=== PATIENT | female | born 1990 | race Caucasian/White ===

== ENCOUNTER 2017-06-28 02:18 | Emergency (ER) | payer OTHER ==
[~2017-06-28] VITALS: Ht 160 cm; Wt 64.8 kg
[~2017-06-28 02:18] MED LIST: ALUMSUS68 PO; LEVOIUD IU; ONDA4TAB46 PO; SIME80CH PO; [UNRECOGNIZED DRUG - REMARK] PO
[2017-06-28 02:26] VITALS: TEMP 36.3; Ht 160 cm; Wt 64.8 kg
[2017-06-28] MEDS ORDERED: METOCLOPRAMIDE HCL INJ 5 MG/ML 2 ML VIAL IV STA (02:46)
[2017-06-28] MEDS ORDERED: DiphenhydrAMINE HCL 50 MG/ML VIAL IV STA (02:46)
[2017-06-28] MEDS ORDERED: SODIUM CHLORIDE 0.9% 1000ML 1,000 ML IV STA (02:46)
[2017-06-28 03:45] LABS: BASO % 0.1 %; BASO ABS # 0.02 K/uL (0-0.2); COMPLETE YES; EOS % 0.4 %; HEMATOCRIT 42.5 % (37-47); IG% 0.2 %; LYMPH % 13.4 %; LYMPH ABS # 1.82 K/uL (1.2-3.4); MEAN CELL VOLUME 87.3 fL (80-100); MEAN CORPUSCULAR HEMOGLOBIN 31.8 pg (25-34); MEAN CORPUSCULAR HGB CONC 36.5 g/dl (32-36); MEAN PLATELET VOLUME 9.6 fL (7.4-10.4); NEUT % 77.9 %; PLATELET COUNT 158 K/uL (130-400); RED BLOOD COUNT 4.87 M/uL (4.2-5.4); WHITE BLOOD COUNT 13.61 K/uL (4.8-10.8)
[2017-06-28 04:07] LABS: BUN/CREATININE RATIO 28.9 (10-20); CALCIUM 8.7 mg/dl (8.5-10.1); CREATININE 0.61 mg/dl (0.60-1.20); POTASSIUM 3.3 mmol/L (3.5-5.1); PREG INTERNAL NEGATIVE QC NEG CLEAR BACKGROUND; PREG INTERNAL POSITIVE QC POS CONTROL LINE
[2017-06-28] MEDS ORDERED: POTASSIUM CHLORIDE 10 MEQ TABCR PO STA (04:23)
[2017-06-28 04:50] VITALS: BP 105/46; PULSE 85; O2SAT 98
--- NOTE | 2017-06-28 05:22 | EMERGENCY ROOM VISIT NOTE ---
History First contact with patient: 02:37 Chief Complaint: HEADACHE Stated Complaint: HEAD ACHE,NAUSEA History of Present Illness The patient is a 26 year old female who presents to the Emergency Room with complaints of headache for the past several hours of nausea and vomiting and photosensitivity. Patient has had headaches before. This feels slightly different. There is a family history of migraines. Headache 8 out of 10 throughout the head. Patient denies sudden onset headache, fevers, chills, neck stiffness, loss of vision, change in vision, balance problems, localized weakness, chest pain, dyspnea, abdominal pain or any other medical complaints. Review of Systems See HPI for pertinent positives & negatives. A total of 10 systems reviewed and were otherwise negative. Past Medical/Surgical History Medical Problems: (1) Bipol I, Rec Epis Or Current Mixed, Severe, Wo Psychotic Beh (2) Depressive Disorder Nec (3) Headache (4) Nausea & vomiting (5) Nausea & vomiting Family History Cancer Hypertension Social History Smoking Status: Current Every Day Smoker Alcohol Use: none Drug Use: none Marital Status: in relationship Housing Status: lives with family Occupation Status: employed Current/Historical Medications No Active Prescriptions or Reported Meds Physical Exam Vital Signs Date Time Temp Pulse Resp B/P (MAP) Pulse Ox O2 Delivery O2 Flow Rate FiO2 06/28/17 04:50 85 18 105/46 98 06/28/17 02:26 36.3 89 16 123/66 96 Room Air Pain Rating (0-10): 4.0 Physical Exam VITALS: Vitals are noted on the nurse's note and reviewed by myself. Vital signs stable. GENERAL: Pleasant female, in no acute distress, nondiaphoretic, well-developed well-nourished. SKIN: The skin was without rashes, erythema, edema, or bruising. There is no tenting of the skin. Capillary reflex less than 2 seconds. HEAD: Normocephalic atraumatic. EARS: External auditory canals clear, tympanic membranes pearly piña without erythema or effusion bilaterally. EYES: Pupils equal round and reactive to light and accommodation. Conjunctivae without injection, sclerae without icterus. Extraocular movements intact. NOSE: Patent, turbinates without inflammation or discharge. No sinus tenderness. MOUTH: Mucous membranes moist. Pharynx without erythema or exudate. Uvula midline. Airway patent. Tongue does not deviate. NECK: Supple without nuchal rigidity. No lymphadenopathy. No thyromegaly. Cervical spine is nontender. No JVD. No meningeal signs HEART: Regular rate and rhythm without murmurs gallops or rubs. LUNGS: Clear to auscultation bilaterally without wheezes, rales or rhonchi. No dullness to percussion. No retractions or accessory muscle use. ABDOMEN: Positive bowel sounds x 4. Normal tympanic percussion. Soft, nontender, without masses or organomegaly. Reid sign negative. No guarding or rebound tenderness. MUSCULOSKELETAL: No muscle atrophy, erythema, or edema noted. NEURO: Patient was alert and oriented to person place and time. Normal sensation to light and sharp touch. No focal neurological deficits. Cranial nerves II through XII grossly intact. cerebellar exam intact Medical Decision & Procedures Laboratory Results 06/28/17 03:22 Red Blood Count 4.87, Mean Corpuscular Volume 87.3, Mean Corpuscular Hemoglobin 31.8, Mean Corpuscular Hemoglobin Concent 36.5, Mean Platelet Volume 9.6, Neutrophils (%) (Auto) 77.9, Lymphocytes (%) (Auto) 13.4, Monocytes (%) (Auto) 8.0, Eosinophils (%) (Auto) 0.4, Basophils (%) (Auto) 0.1, Neutrophils # (Auto) 10.59, Lymphocytes # (Auto) 1.82, Monocytes # (Auto) 1.09, Eosinophils # (Auto) 0.06, Basophils # (Auto) 0.02 06/28/17 03:22 Test 06/28/17 03:22 White Blood Count 13.61 K/uL (4.8-10.8) Red Blood Count 4.87 M/uL (4.2-5.4) Hemoglobin 15.5 g/dL (12.0-16.0) Hematocrit 42.5 % (37-47) Mean Corpuscular Volume 87.3 fL (80-100) Mean Corpuscular Hemoglobin 31.8 pg (25-34) Mean Corpuscular Hemoglobin Concent 36.5 g/dl (32-36) Platelet Count 158 K/uL (130-400) Mean Platelet Volume 9.6 fL (7.4-10.4) Neutrophils (%) (Auto) 77.9 % Lymphocytes (%) (Auto) 13.4 % Monocytes (%) (Auto) 8.0 % Eosinophils (%) (Auto) 0.4 % Basophils (%) (Auto) 0.1 % Neutrophils # (Auto) 10.59 K/uL (1.4-6.5) Lymphocytes # (Auto) 1.82 K/uL (1.2-3.4) Monocytes # (Auto) 1.09 K/uL (0.11-0.59) Eosinophils # (Auto) 0.06 K/uL (0-0.5) Basophils # (Auto) 0.02 K/uL (0-0.2) RDW Standard Deviation 39.9 fL (36.4-46.3) RDW Coefficient of Variation 12.4 % (11.5-14.5) Immature Granulocyte % (Auto) 0.2 % Immature Granulocyte # (Auto) 0.03 K/uL (0.00-0.02) Anion Gap 4.0 mmol/L (3-11) Est Creatinine Clear Calc Drug Dose 126.5 ml/min Estimated GFR () 145.0 Estimated GFR (Non- 125.1 BUN/Creatinine Ratio 28.9 (10-20) Calcium Level 8.7 mg/dl (8.5-10.1) Human Chorionic Gonadotropin, Qual NEG (NEG) Medications Administered Medications (Trade) Dose Ordered Sig/Rosibel Route Start Time Stop Time Status Last Admin Dose Admin Metoclopramide HCl (Reglan Inj) 10 mg NOW STAT IV 06/28/17 02:46 06/28/17 02:48 DC 06/28/17 03:38 10 MG Diphenhydramine HCl (Benadryl Inj) 25 mg NOW STAT IV 06/28/17 02:46 06/28/17 02:48 DC 06/28/17 03:38 25 MG Sodium Chloride 1,000 ml @ 999 mls/hr Q1H1M STAT IV 06/28/17 02:46 06/28/17 03:46 DC 06/28/17 03:38 999 MLS/HR Potassium Chloride (Klor-Con M10) 20 meq NOW STAT PO 06/28/17 04:23 06/28/17 04:24 DC 06/28/17 04:48 20 MEQ ED Course Prior records/ancillary studies reviewed. Additional history obtained from family. Triage Nursing notes reviewed. The patient's history was concerning for headache. Differential diagnosis: Etiologies such as migraine headache, meningitis, sinusitis, CO exposure, ICH, SAH, infection, tumor, headache, sinus thrombosis, arterial dissection, as well as others were entertained. Physical examination findings: As above. Non-focal. ER treatment provided: reglan, benadryl On reassessment the patient felt better. Diagnostics interpreted by me: The labs revealed leukocytosis most likely marginalization from vomiting, hypokalemia and this is replaced orally Imaging studies: Head CT negative per radiology This appears to be consistent with headache. She was advised to see family care for possible workup for migraines. Patient was neurovascularly and neurologically intact. She felt much better. She is advised to rest, stay well -hydrated and to follow-up family care in a few days or here in the ER sooner for headache, fevers, neck stiffness, worsening signs or symptoms or as needed. By the evaluation outlined above emergent etiologies such as meningitis, sinusitis, CO exposure, ICH, SAH, infection, temporal arteritis, tumor, sinus thrombosis, arterial dissection, as well as others were deemed relatively unlikely. The pt informed about the findings as listed above. All questions were answered and pleased with the treatment. Return instructions were outlined and the patient was discharged in stable condition. Referral: The patient was referred back to their primary care physician for follow-up in 2 to 3 days for a recheck of the current condition. Case reviewed with my attending Medical Decision as above Medication Reconcilliation Current Medication List: was personally reviewed by me Blood Pressure Screening Patient's blood pressure: Normal blood pressure Impression Primary Impression: Headache Additional Impression: Hypokalemia Departure Information Dispostion Home / Self-Care Condition GOOD Prescriptions No Active Prescriptions or Reported Meds Referrals Louis Hinojosa M.D. (PCP) Forms HOME CARE DOCUMENTATION FORM, IMPORTANT VISIT INFORMATION Patient Instructions [facility], ED Headache Migraine Additional Instructions DO NOT drive, drink alcohol, operate machinery, or perform dangerous activities today. You were given medications in the ER that can affect your ability to safely function or operate a vehicle. Rest today in a quiet, peaceful, dark environment and get a full 8-10 hrs of sleep tonight. Avoid loud noises, smoke/smoking, alcohol, bright lights, stress, or physical exertion today to minimize the chance the headache may return. Continue current medications. Ibuprofen(Motrin, Advil) may be used for fever or pain. Use 600mg every six hours as needed. Take with food. Avoid using more than 2400mg in a 24 hour period. Do not use 2400mg per day for more than three consecutive days without physician direction. Prolonged inappropriate use can lead to stomach upset or ulcers. (AND/OR) Acetaminophen(Tylenol) may be used for fever or pain. Use 1000mg every six hours as needed. Avoid using more than 3000mg in a 24 hour period. Return to the ER for passing out, worsening headache, vision problems, neck stiffness/pain, fevers, vomiting, worsening of your condition, or as needed. Follow up with your primary physician and/or neurologist in 2-3 days for a recheck of your current condition. Problem Qualifiers Primary Impression: Headache Headache type: unspecified Headache chronicity pattern: acute headache Intractability: not intractable Qualified Codes: R51 - Headache
--- NOTE | 2017-06-28 06:50 | DIAGNOSTIC IMAGING REPORT ---
HEAD CT NONCONTRAST CT DOSE: 614.27 mGy.cm HISTORY: Severe headache. TECHNIQUE: Multiaxial CT images of the head were performed without the use of intravenous contrast. Automated exposure control was utilized for this study. A dose lowering technique was utilized adhering to the principles of ALARA. Comparison: Head CT 06/02/2014. Findings: The paranasal sinuses and mastoid air cells are clear. The calvarium and skull base are intact. The ventricles and sulci are within normal limits. There is no mass, hematoma, midline shift, or acute infarct. Impression: No acute intracranial abnormality. Electronically signed by: Jed Connor M.D. 06/28/2017 6:48 AM Dictated Date/Time: 06/28/2017 6:46 AM
== END 2017-06-28 04:53 | disposition home or self-care (01) ==
LOC: C.EDB 02:19
DX: R51 Headache (principal); E87.6 Hypokalemia; F31.9 Bipolar disorder, unspecified; F32.9 Major depressive disorder, single episode, unspecified; Z80.9 Family history of malignant neoplasm, unspecified; Z82.49 Family history of ischemic heart disease and other diseases of the circulatory system; F17.210 Nicotine dependence, cigarettes, uncomplicated

== ENCOUNTER 2019-07-28 13:24 | Inpatient (IN) ==
[2019-07-28 14:03] LABS: Basophils # (auto) 0.03 K/uL (0-0.2); Basophils % (auto) 0.5 %; Eosinophils # (auto) 0.09 K/uL (0-0.5); Eosinophils % (auto) 1.4 %; Hematocrit (blood only) 40.1 % (37-47); Hemoglobin 14.2 g/dL (12.0-16.0); Immature Granulocytes # (auto) 0.01 K/uL (0.00-0.02); Immature Granulocytes % (auto) 0.2 %; Lymphocytes # (auto) 1.68 K/uL (1.2-3.4); Lymphocytes % (auto) 25.5 %; Mean Corpuscular Hgb Conc 35.4 g/dL (32-36); Mean Corpuscular Volume 90.3 fL (80-100); Monocytes # (auto) 0.59 K/uL (0.11-0.59); Neutrophils # (auto) 4.18 K/uL (1.4-6.5); Neutrophils % (auto) 63.4 %; Platelet Count 162 K/uL (130-400); RDW Coefficient of Variation 13.2 % (11.5-14.5); Red Blood Count 4.44 M/uL (4.2-5.4); White Blood Count 6.58 K/uL (4.8-10.8)
[2019-07-28 14:11] LABS: Albumin Level 4.2 gm/dl (3.4-5.0); Calcium 8.9 mg/dl (8.5-10.1); Creatinine Clr Calc Pharmacy 102.7 ml/min; Est GFR (African American) 125.7; Est GFR (Non-African American) 108.5
[2019-07-28 14:21] LABS: Appearance Urine Clear (Clear); Bacteria Urine Automated Negative (Negative); Bilirubin Urine Negative (Negative); Blood Urine Negative (Negative); Color Urine Yellow; Epithelial Cell Urine Auto >30 /lpf (0-5); Glucose Urine UA Negative (Negative); Ketones Urine Trace (Negative); Leukocyte Esterase Urine Trace (Negative); Nitrite Urine Negative (Negative); Protein Urine Negative (Negative); RBC Urine Automated 0-4 /hpf (0-4); Specific Gravity Urine 1.019 (1.000-1.030); Urobilinogen Urine Negative (Negative); pH Urine 6.5 (4.5-7.5)
[2019-07-28 14:22] LABS: Albumin Globulin Ratio 1.5 (0.9-2); Bilirubin,Total 0.6 mg/dl (0.2-1); Globulin 2.9 gm/dl (2.5-4.0); Thyroid Stimulating Hormone 1.14 uIu/ml (0.300-4.500); Total Protein 7.1 gm/dl (6.4-8.2)
[2019-07-28 14:28] LABS: Pregnancy Test, Urine Negative (Negative)
[2019-07-28 14:41] LABS: Acetaminophen < 2 ug/ml (10-30)
[2019-07-28 14:42] LABS: Salicylate < 1.7 mg/dl (2.8-20)
[2019-07-28 14:44] LABS: Amphetamines+Metham, Urine Neg (Neg); Barbiturates, Urine Neg (Neg); Benzodiazepine, Urine Neg (Neg); Cocaine, Urine Neg (Neg); MDMA (Ecstacy), Urine Neg (Neg); Methadone, Urine Neg (Neg); Opiate, Urine Neg (Neg); Phencyclidine, Urine Neg (Neg)
--- NOTE | 2019-07-28 15:17 | Emergency Department Note ---
Entered by Lindsay Powell acting as a scribe for History of Present Illness General Chief complaint: Psychiatric Symptoms/Problems Stated complaint: MENTAL HEALTH EVAL Time Seen by Provider: 07/28/19 13:31 Source: patient Mode of arrival: ambulatory Limitations: no limitations History of Present Illness Onset (ago): month(s) 1 Location: head Radiation: non-radiation Pain Consistency: + constant Maximum Pain Intensity: 0 Relieved By: + none Exacerbated By: + other (recent break-up) Treatments prior to arrival: none The patient is a 28 year old female who presents to the ED with complaints of feelings of worsening depression for the past 1 month. She is accompanied by her Grandmother. She states she has been feeling unstable recently. She saw her Psychiatrist at [facility] this morning and was started on new medication. She admits to increasing feelings of depression and anxiety. She notes her symptoms started after a breakup and have delved in feelings of self-hatred over her weight. The patient was admitted inpatient to the [facility] twice in the past, once for a suicide attempt via pill overdose as a teenager, and once for self- injurious behavior. She denies any recent cutting self-injury. She states she has lost interest in things that used to bring her audelia. She admits to increased guilt over her mental status and feeling like a burden to her family. She states some days she sleeps a lot, and some days only a little. She is currently on nicotine patch and is trying to quit. She admits to occasional recreational drug use of marijuana, methamphetamine and psychedelics. The last time she used any recreational drugs was this past weekend. She denies any access to weapons other than kitchen knives. The patient admits she has thought about suicide recently with a plan to overdose on pills. Her grandmother notes her Mom in the past few years and the patient has been having a hard time dealing with that. Home Medications Home Medications Medication Instructions Recorded Confirmed Type levonorgestrel 20 mcg/24 hours (5 20 mcg IU CONTINOUS ea 07/15/19 07/28/19 History yrs) 52 mg intrauterine device clonazepam 0.5 mg PO BID PRN 07/28/19 07/28/19 History ibuprofen 400 mg PO Q6H PRN 07/28/19 07/28/19 History nicotine [Nicoderm CQ] 1 patch TRANSDERMAL DAILY 07/28/19 07/28/19 History Allergies Allergy/AdvReac Type Severity Reaction Status Date / Time No Known Drug Allergies Allergy Unknown Verified 07/28/19 14:07 Past Med/Surg History Medical History Anxiety Depression History of female hirsutism Polycystic ovarian syndrome History of abnormal cervical Pap smear IUD (intrauterine device) in place mirena- 08/19/13 Surgical History No pertinent past surgical history Family History Other Cancer Heart disease Hypertension Social History Preferred Language: Estonian Communication Ability: Effective Machine Joint Cutter Required: No Beliefs That Will Affect Care: None Feels Safe at Home: Yes Smoking Status: Former smoker Tobacco Type: cigarettes ; packs per day: 1 ; Hx Alcohol Use: Yes Review of Systems See HPI for pertinent positives & negatives. and A total of 10 systems reviewed and were otherwise negative Physical Exam Vital Signs Vital Signs - 24 hr 07/28/19 13:30 Temperature 36.8 C Temperature Source Oral Sepsis Recent Fever Within 48 Hours No Sepsis New/Unexplained Change in Mental Status No Sepsis Action Taken by Nursing No Action Required Pulse Rate 65 Respiratory Rate 16 Blood Pressure 117/69 Blood Pressure Mean 85 Pulse Oximetry 97 Oxygen Delivery Method Room Air GENERAL: She is oriented to person, place, and time. She appears well-developed and well-nourished. She does not appear distressed. HENT: Exam performed. * Head: Normocephalic and atraumatic. * Right Ear: External ear normal. No mastoid tenderness. * Left Ear: External ear normal. No mastoid tenderness. * Mouth/Throat: The oropharynx is clear and moist. No trismus in the jaw. No dental abscesses or uvula swelling. No oropharyngeal exudate or tonsillar abscesses. EYES: Conjunctivae and EOM are normal. Pupils are equal, round, and reactive to light. Right eye exhibits no discharge. Left eye exhibits no discharge. No scleral icterus. NECK: Normal range of motion. Neck supple. No JVD present. No spinous process tenderness present. No carotid bruit present. No rigidity. No tracheal deviation and normal range of motion present. No Brudzinski's sign and no Kernig's sign noted. CV: Normal rate, regular rhythm, normal heart sounds and intact distal pulses. There is no peripheral edema. Palpable radial pulses bue. PULM/CHEST: Effort normal and breath sounds normal. No respiratory distress. No stridor. She has no wheezes. She has no rales. Chest Wall: She exhibits no tenderness. ABD: The abdomen is soft. Bowel sounds are normal. She has no distension. No mass is present. There is no tenderness. There is no rebound, no guarding, no Reid's sign and no tenderness at McBurney's point. Rovsig negative MUSC/SKEL: Normal range of motion. There is no peripheral edema, tenderness or deformity. LYMPH: No cervical adenopathy. NEURO: She is alert and oriented to person, place, and time. She has normal strength. No cranial nerve deficit or sensory deficit. Coordination and gait normal. GCS eye subscore is 4. GCS verbal subscore is 5. GCS motor subscore is 6. cerbellar tests wnl. SKIN: Skin is warm and dry. She is not diaphoretic. PSYCH: Patient has a depressed affect. Positive SI. She is tearful and crying but her behavior is otherwise normal. Judgment and thought content normal. Course 1337: The patient was evaluated in room A8 and a complete history and physical were performed. 1517: Patient cleared medically. Awaiting psychiatric placement. 1605: The patient has been accepted by [address] [place] [address] [facility]. She will be further evaluated. Medical Decision Making Medical Records Attestation: I reviewed the patient's medical records. Home Medications Current Medication List: was personally reviewed by me Laboratory Data Attestation: I reviewed the patient's lab results. Result diagrams: 07/28/19 13:40 07/28/19 13:40 Lab Results 07/28/19 07/28/19 07/28/19 Range/Units 13:37 13:37 13:37 WBC (4.8-10.8) K/uL RBC (4.2-5.4) M/uL Hgb (12.0-16.0) g/dL Hct (37-47) % MCV (80-100) fL MCH (25-34) pg MCHC (32-36) g/dL RDW Std Deviation (36.4-46.3) fL RDW Coeff of Barry (11.5-14.5) % Plt Count (130-400) K/uL MPV (7.4-10.4) fL Immature Gran % (Auto) % Neut % (Auto) % Lymph % (Auto) % Orange % (Auto) % Eos % (Auto) % Baso % (Auto) % Immature Gran # (Auto) (0.00-0.02) K/uL Neut # (Auto) (1.4-6.5) K/uL Lymph # (Auto) (1.2-3.4) K/uL Orange # (Auto) (0.11-0.59) K/uL Eos # (Auto) (0-0.5) K/uL Baso # (Auto) (0-0.2) K/uL Sodium (136-145) mmol/L Potassium (3.5-5.1) mmol/L Chloride (98-107) mmol/L Carbon Dioxide (21-32) mmol/L Anion Gap (3-11) BUN (7-18) mg/dl Creatinine (0.6-1.2) mg/dl Est Cr Clr Drug Dosing ml/min Est GFR ( Amer) Est GFR (Non-Af Amer) BUN/Creatinine Ratio (10-20) Glucose (70-99) mg/dl Calcium (8.5-10.1) mg/dl Total Bilirubin (0.2-1) mg/dl AST (15-37) U/L ALT (12-78) U/L Alkaline Phosphatase (45-117) U/L Total Protein (6.4-8.2) gm/dl Albumin (3.4-5.0) gm/dl Globulin (2.5-4.0) gm/dl Albumin/Globulin Ratio (0.9-2) TSH (0.300-4.500) uIu/ml Urine Color Yellow Urine Appearance Clear (Clear) Urine pH 6.5 (4.5-7.5) Ur Specific [place] 1.019 (1.000-1.030) Urine Protein Negative (Negative) Urine Glucose (UA) Negative (Negative) Urine Ketones Trace H (Negative) Urine Blood Negative (Negative) Urine Nitrite Negative (Negative) Urine Bilirubin Negative (Negative) Urine Urobilinogen Negative (Negative) Ur Leukocyte Esterase Trace H (Negative) Urine WBC (Auto) 5-10 H (0-5) /hpf Urine RBC (Auto) 0-4 (0-4) /hpf U Hyaline Cast (Auto) 1-5 (0-5) /lpf U Epithel Cells (Auto) >30 H (0-5) /lpf Urine Bacteria (Auto) Negative (Negative) Urine Test Negative (Negative) Salicylates (2.8-20) mg/dl Urine Opiates Screen Neg (Neg) Ur Methadone, Qual Neg (Neg) Acetaminophen (10-30) ug/ml Urine Barbiturates Neg (Neg) Ur Phencyclidine (PCP) Neg (Neg) U Amphetamin/Meth Scrn Neg (Neg) MDMA (Ecstasy) Screen Neg (Neg) U Benzodiazepines Scrn Neg (Neg) Ur Cocaine Metabolite Neg (Neg) U Marijuana (THC) Screen Pos H (Neg) Ethyl Alcohol mg/dL (0-3) mg/dl 07/28/19 07/28/19 07/28/19 Range/Units 13:40 13:40 13:40 WBC 6.58 (4.8-10.8) K/uL RBC 4.44 (4.2-5.4) M/uL Hgb 14.2 (12.0-16.0) g/dL Hct 40.1 (37-47) % MCV 90.3 (80-100) fL MCH 32.0 (25-34) pg MCHC 35.4 (32-36) g/dL RDW Std Deviation 43.0 (36.4-46.3) fL RDW Coeff of Barry 13.2 (11.5-14.5) % Plt Count 162 (130-400) K/uL MPV 10.0 (7.4-10.4) fL Immature Gran % (Auto) 0.2 % Neut % (Auto) 63.4 % Lymph % (Auto) 25.5 % Orange % (Auto) 9.0 % Eos % (Auto) 1.4 % Baso % (Auto) 0.5 % Immature Gran # (Auto) 0.01 (0.00-0.02) K/uL Neut # (Auto) 4.18 (1.4-6.5) K/uL Lymph # (Auto) 1.68 (1.2-3.4) K/uL Orange # (Auto) 0.59 (0.11-0.59) K/uL Eos # (Auto) 0.09 (0-0.5) K/uL Baso # (Auto) 0.03 (0-0.2) K/uL Sodium 144 (136-145) mmol/L Potassium 4.0 (3.5-5.1) mmol/L Chloride 113 H (98-107) mmol/L Carbon Dioxide 24 (21-32) mmol/L Anion Gap 8.0 (3-11) BUN 11 (7-18) mg/dl Creatinine 0.75 (0.6-1.2) mg/dl Est Cr Clr Drug Dosing 102.7 ml/min Est GFR ( Amer) 125.7 Est GFR (Non-Af Amer) 108.5 BUN/Creatinine Ratio 14.0 (10-20) Glucose 85 (70-99) mg/dl Calcium 8.9 (8.5-10.1) mg/dl Total Bilirubin 0.6 (0.2-1) mg/dl AST 24 (15-37) U/L ALT 22 (12-78) U/L Alkaline Phosphatase 79 (45-117) U/L Total Protein 7.1 (6.4-8.2) gm/dl Albumin 4.2 (3.4-5.0) gm/dl Globulin 2.9 (2.5-4.0) gm/dl Albumin/Globulin Ratio 1.5 (0.9-2) TSH 1.140 (0.300-4.500) uIu/ml Urine Color Urine Appearance (Clear) Urine pH (4.5-7.5) Ur Specific [place] (1.000-1.030) Urine Protein (Negative) Urine Glucose (UA) (Negative) Urine Ketones (Negative) Urine Blood (Negative) Urine Nitrite (Negative) Urine Bilirubin (Negative) Urine Urobilinogen (Negative) Ur Leukocyte Esterase (Negative) Urine WBC (Auto) (0-5) /hpf Urine RBC (Auto) (0-4) /hpf U Hyaline Cast (Auto) (0-5) /lpf U Epithel Cells (Auto) (0-5) /lpf Urine Bacteria (Auto) (Negative) Urine Test (Negative) Salicylates < 1.7 L (2.8-20) mg/dl Urine Opiates Screen (Neg) Ur Methadone, Qual (Neg) Acetaminophen < 2 L (10-30) ug/ml Urine Barbiturates (Neg) Ur Phencyclidine (PCP) (Neg) U Amphetamin/Meth Scrn (Neg) MDMA (Ecstasy) Screen (Neg) U Benzodiazepines Scrn (Neg) Ur Cocaine Metabolite (Neg) U Marijuana (THC) Screen (Neg) Ethyl Alcohol mg/dL (0-3) mg/dl 07/28/19 Range/Units 13:40 WBC (4.8-10.8) K/uL RBC (4.2-5.4) M/uL Hgb (12.0-16.0) g/dL Hct (37-47) % MCV (80-100) fL MCH (25-34) pg MCHC (32-36) g/dL RDW Std Deviation (36.4-46.3) fL RDW Coeff of Barry (11.5-14.5) % Plt Count (130-400) K/uL MPV (7.4-10.4) fL Immature Gran % (Auto) % Neut % (Auto) % Lymph % (Auto) % Orange % (Auto) % Eos % (Auto) % Baso % (Auto) % Immature Gran # (Auto) (0.00-0.02) K/uL Neut # (Auto) (1.4-6.5) K/uL Lymph # (Auto) (1.2-3.4) K/uL Orange # (Auto) (0.11-0.59) K/uL Eos # (Auto) (0-0.5) K/uL Baso # (Auto) (0-0.2) K/uL Sodium (136-145) mmol/L Potassium (3.5-5.1) mmol/L Chloride (98-107) mmol/L Carbon Dioxide (21-32) mmol/L Anion Gap (3-11) BUN (7-18) mg/dl Creatinine (0.6-1.2) mg/dl Est Cr Clr Drug Dosing ml/min Est GFR ( Amer) Est GFR (Non-Af Amer) BUN/Creatinine Ratio (10-20) Glucose (70-99) mg/dl Calcium (8.5-10.1) mg/dl Total Bilirubin (0.2-1) mg/dl AST (15-37) U/L ALT (12-78) U/L Alkaline Phosphatase (45-117) U/L Total Protein (6.4-8.2) gm/dl Albumin (3.4-5.0) gm/dl Globulin (2.5-4.0) gm/dl Albumin/Globulin Ratio (0.9-2) TSH (0.300-4.500) uIu/ml Urine Color Urine Appearance (Clear) Urine pH (4.5-7.5) Ur Specific [place] (1.000-1.030) Urine Protein (Negative) Urine Glucose (UA) (Negative) Urine Ketones (Negative) Urine Blood (Negative) Urine Nitrite (Negative) Urine Bilirubin (Negative) Urine Urobilinogen (Negative) Ur Leukocyte Esterase (Negative) Urine WBC (Auto) (0-5) /hpf Urine RBC (Auto) (0-4) /hpf U Hyaline Cast (Auto) (0-5) /lpf U Epithel Cells (Auto) (0-5) /lpf Urine Bacteria (Auto) (Negative) Urine Test (Negative) Salicylates (2.8-20) mg/dl Urine Opiates Screen (Neg) Ur Methadone, Qual (Neg) Acetaminophen (10-30) ug/ml Urine Barbiturates (Neg) Ur Phencyclidine (PCP) (Neg) U Amphetamin/Meth Scrn (Neg) MDMA (Ecstasy) Screen (Neg) U Benzodiazepines Scrn (Neg) Ur Cocaine Metabolite (Neg) U Marijuana (THC) Screen (Neg) Ethyl Alcohol mg/dL < 3.0 (0-3) mg/dl Blood Pressure Blood Pressure Findings: Normal blood pressure Blood Pressure Disposition: did not require urgent referral MDM Narrative 1337: The patient was evaluated in room A8 and a complete history and physical were performed. 1517: Patient cleared medically. Awaiting psychiatric placement. 1605: The patient has been accepted by [facility] [place] [facility]. She will be further evaluated. Impression & Plan Suicidal ideation, Depression, Anxiety Discharge Plan Visit Data *Final* Discharge Date/Time: 07/28/19 16:10 Chief Complaint: Psychiatric Symptoms/Problems Stated Complaint: MENTAL HEALTH EVAL ED Provider: Alex Lozano Discharge Problem: Suicidal ideation, Depression, Anxiety Patient Disposition: Still a Patient Discharge Instructions Interventions: ED Discharge Assessment Last Done: 07/28/19 16:10 The scribe's documentation has been prepared under my direction and personally reviewed by me in its entirety. I confirm that the note above accurately reflect s all work, treatment, procedures, and medical decision making performed by me.
[2019-07-28] MEDS ORDERED: NICOTINE POLACRILEX 2 MG GUM MT PRN (15:26)
[2019-07-28] MEDS ORDERED: ALUMINUM/MAGNESIUM SUSP 30 ML UDC PO PRN (15:26)
[2019-07-28] MEDS ORDERED: SODIUM CHLORIDE 0.65% NA SOLN 45 ML (OCEAN) PRN (15:26)
[2019-07-28] MEDS ORDERED: MAGNESIUM HYDROXIDE SUSP 30 ML UDC PO PRN (15:26)
[2019-07-28] MEDS ORDERED: ACETAMINOPHEN 325 MG TAB PO PRN (15:26)
[2019-07-28] MEDS ORDERED: BISMUTH SUBSALICYLATE PER ML OMNICELL CHARGE PO PRN (15:26)
[2019-07-28] MEDS ORDERED: IBUPROFEN 200 MG TAB PO PRN (15:30)
[2019-07-28] MEDS ORDERED: NICOTINE 21 MG/24 HR TDSY TD SCH (15:30)
[2019-07-28] MEDS: NICOTINE 14 MG/24 HR PATCH TD SCH (19:54)
[2019-07-29] MEDS: NICOTINE 14 MG/24 HR PATCH TD SCH (09:58)
[2019-07-29] MEDS: ESCITALOPRAM OXALATE 10 MG TAB PO SCH (10:57)
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
[2019-07-29] MEDS: ARIPiprazole 5 MG TAB PO SCH (21:18)
--- NOTE | 2019-07-30 08:28 | Psychiatric Progress Note ---
Date of Service July 30, 2019 Impression / Recommendations Impression This 28-year-old woman reports a history of mood alterations that began in early adolescence and have persisted, intermittently, during the ensuing years. She tells us that she has variously been diagnosed as having "depression" and, at other times, she has been diagnosed as having bipolar disorder. Based on my findings today, I believe the patient does meet criteria for bipolar 2 disorder. She clearly does describe discrete episodes of increased energy, pressured speech, flight of ideas, decreased judgment, poor impulse control, elevated and expansive mood, and decreased desire for sleep. Complicating the clinical picture is the fact the patient acknowledges that she sometimes abuses stimulant medications, but she notes that she has experienced the above symptoms of hypomania independent of the use of any mood altering chemical substance, although she acknowledges that the symptoms or effects are quite similar. A distinguishing difference in the patient's case is that she notes that the elev ated, expansive, energetic aspects of using methamphetamine or short lived and do not continue once use is stopped, while her hypomanic episodes tend to last for at least a week. Also complicating the clinical picture is the patient's long standing difficulty tolerating a number of psychiatric medications, including selective serotonin reuptake inhibitors, selective norepinephrine reuptake inhibitors, and mood stabilizers such as lithium carbonate. At the same time, she has not been tried on several medications that might be effective in her case. These include valproic acid, carbamazepine, lamotrigine, olanzapine, quetiapine, aripiprazole, risperidone, duloxetine, Lexapro, Pristiq, and others. The expressed purpose of the hospitalization is to begin the patient on psychotropic medications in the hospital, given her risk of complications associated with psychiatric medications which have, in the past, included worsening depression. We have discussed various possible strategies, and the patient is agreeable to a trial of a low-dose of Lexapro, combined with a low dose of aripiprazole. We also discussed possibly using lamotrigine as a mood stabilizer. Although the patient does not meet criteria for an eating disorder at this time, she tells me that she has struggled with weight and has used compensatory behaviors such as fasting and excessive exercise as a way of losing weight. Among her concerns with psychiatric medications as the potential for weight gain. (1) Bipolar disorder: 07/29/19 -The patient indicates that there has been some question concerning her correct diagnosis in the past. However, she does appear to meet criteria for bipolar disorder type II. -We discussed a number of options for mood stabilization, and it may be that the only mood stabilizer that she is ever taken is lithium. She was not able to tolerate lithium, and she suggests that there may have been others that she cannot of. She believes, however, that she has not taken aripiprazole for depression or for mood stabilization. -Begin aripiprazole 2.5 mg at bedtime and titrate as indicated and tolerated. Material risks and anticipated benefits of aripiprazole were reviewed with the patient and she indicated understanding. -Begin Lexapro 5 mg as a test dose and continue daily with titration as tolerated and indicated. Material risks and anticipated benefits of Lexapro were reviewed with the patient and she indicated understanding. -Depending upon the patient's response to the above, trials of lamotrigine, or valproic acid may be indicated. -An impediment to treatment may be the patient's fear of gaining weight. The patient was counseled regarding the risk of weight gain and psychiatric medications. She had not been able to tolerate bupropion and she also had not been able to tolerate venlafaxine. She is aware that these medications do not in and of themselves cause weight gain, but may stimulate the appetite and c ertain cravings that need to be managed to avoid excessive weight gain. -Encourage participation in individual, group, and activity therapies to learn improved individual coping strategies. 07/30 - Continue escitalopram and aripiprazole. Fasting labs ordered for tomorrow for baseline on an atypical. (2) Suicidal ideation: 07/29/19 -The patient reports that she has frequent suicidal thoughts, but at the present does not have suicidal plan, nor does she have suicidal intent. -She contracts for safety in the hospital. There is a past history of a alexa cide attempt approximately 12 years ago. She also engaged in intentional self- injurious behaviors for a number of years, but has not engaged in this behavior for approximately 10 years. -The patient agrees to notify staff if suicidal plan or intent develops. -Inpatient psychiatric hospitalization is the least intensive level of care consistent with the patient's needs due to the patient's past history of experiencing worsening depression and suicidality when psychiatric medications are introduced, and the need to introduce psychiatric medications in a controlled, safe setting. 07/30 -Ongoing SI, but feels safe in the hospital. (3) Anxiety: 07/29/19 -Encourage active participation in scheduled group and activity therapies in order to learn improved individual coping strategies. -Emphasize reliance on known techniques such as crafting origami when anxious or distressed. Inventory Assets Strengths: Intelligent. Employed. Motivated to recovery. Able to access self soothing techniques such as crafting origami. Needs: Mood stabilization. [place] from self-destructive impulses and suicidal ideation. Safe initiation and titration of psychiatric medications. Consistent follow through on Risk Factors Assessment Male: No ( outpatient treatment.) : Yes Do You Have Access To A Gun?: No Health Problems: Yes Mental Health Diagnoses: Yes Substance Use Disorders: Yes Previous Attempt: Yes Previous Attempt; Highly Lethal: No Previous Attempt; Planned: No Previous Attempt; Didn't Tell Anyone: No Family History of Suicide: No Previous Psychiatric Hospitalization: Yes Hopelessness: No Smoker: Yes (Patient reports that she recently stopped smoking.) Protective Factors Assessment Judaism Beliefs: No : No Responsible for Young Children: No Employed: Yes ([employer]) Stable Relationships: Yes Supportive Family: No Good Rapport with Provider: No Absence of Any Risk Factors Above: No Interval History Identifying Information MARIBETH REDDY is a 28-year-old F who currently lives in alone in [place]. She has a history of a history of a mood disorder that has been variously diagnosed as major depression, recurrent, or bipolar disorder. She was admitted on 07/28/19 15:26 on a 201 voluntary commitment for because of persistent suicidal ideation and depression.. Chief Complaint "I'm a little more scared than when I first came in". Review of Systems Sleep Information Total Hours of Sleep: 6.75 Meal Information Percent Meal Consumed - Breakfast: 80 Percent Meal Consumed - Lunch: 50 Percent Meal Consumed - Dinner: 40 Subjective Subjective Patient was seen & assessed and interval progress reviewed with nursing and social work. Staff report she is participating in treatment. On my assessment she is tearful, stating she is more fearful as she worries "what if I don't like who I am on medication? What if I miss the highs?" She has tried to manage her moods without medication for years, but says "the lows are just too much." Appetite is poor, has to force self to eat. Continues to have suicidal thoughts, thinks about "how much I'd like to not be here, how much of a burden I feel like to my family and friends." She also reports fear of returning to work, that she won't be able to "snap back into life." She had [place] paperwork faxed to the hospital, but says she was already on attendance probation, and is worried about losing her job. She feels safe here, is using her coping skills (origami), and has found it beneficial to talk with peers. Physical Exam Psychiatric Orientation: alert and cooperative Apperance: appropriately dressed, appropriately groomed and appeared stated age Short dyed hair, nose piercing, nails painted with sparkling nail [place] Eye Contact: good eye contact Motor Behavior: steady gait and station and no abnormal motor movements Speech: normal rate/rhythm/volume of speech Affect: + depressed affect and + tearful affect reactive and appropriate Mood: + depressed mood Thought Process: goal directed thought process Thought Content: + cognitive distortions Suicidal Thoughts: + reports suicidal thoughts Homicidal Thoughts: denies homicidal thoughts Hallucinations: + auditory hallucinations reports hearing a whooshing noise in her ear last night, but doesn't think anyone was there Cognition: recent memory grossly intact, attention grossly intact and language grossly intact Insight: + fair insight Judgement: + fair judgement Vital Signs (Past 24 Hours) Last Vital Signs Temp 36.7 C 07/30/19 06:39 Pulse 72 07/30/19 06:40 Resp 20 07/30/19 06:39 BP 112/77 07/30/19 06:40 Pulse Ox 100 07/28/19 16:10 Results & Data Current Inpatient Medications Current Inpatient Medications: Current Inpatient Medications Acetaminophen (Tylenol) 650 mg PO Q4H PRN PRN Reason: Headache or Minor Fever Stop: 08/27/19 15:25 Al Hydrox/Mg Hydrox/Simethicone (Maalox) 30 ml PO Q4H PRN PRN Reason: GI Upset Stop: 08/27/19 15:25 Aripiprazole (Abilify) 2.5 mg PO QAM AMI Stop: 08/28/19 21:59 Last Admin: 07/29/19 21:18 Dose: 2.5 mg Documented by: Bismuth Subsalicylate (Kaopectate) 15 ml PO PRN PRN PRN Reason: Loose Stool Stop: 08/27/19 15:25 Escitalopram Oxalate (Lexapro Tab) 5 mg PO QAM AMI Stop: 08/28/19 09:59 Last Admin: 07/29/19 10:57 Dose: 5 mg Documented by: Hydroxyzine HCl (Vistaril) 25 mg PO Q4H PRN PRN Reason: Anxiety Stop: 08/27/19 15:25 Hydroxyzine HCl (Vistaril) 50 mg PO HSZ PRN PRN Reason: Insomnia Stop: 08/27/19 15:25 Last Admin: 07/28/19 21:18 Dose: 50 mg Documented by: Ibuprofen (Advil) 400 mg PO Q6H PRN PRN Reason: Pain Stop: 08/27/19 15:29 Magnesium Hydroxide (Milk Of Magnesia) 30 ml PO DAILY PRN PRN Reason: Constipation Stop: 08/27/19 15:25 Miscellaneous (Remove Nicoderm Patch) 1 ea N/A HS AMI Stop: 08/27/19 20:59 Last Admin: 07/29/19 21:20 Dose: Not Given Documented by: Miscellaneous (Order Awaiting Action) 1 ea N/A QS AMI Stop: 08/27/19 16:14 Last Admin: 07/29/19 16:29 Dose: Not Given Documented by: Nicotine (Nicoderm Cq) 14 mg TD DAILY AMI Stop: 08/27/19 15:29 Last Admin: 07/29/19 09:58 Dose: 14 mg Documented by: Nicotine Polacrilex (Nicorette 2mg) 1 piece MT PRN PRN PRN Reason: Nicotine Withdrawal Stop: 08/27/19 15:25 Sodium Chloride ([place] Nasal) 1 - 2 sprays NA PRN PRN PRN Reason: Nasal Dryness/Congestion Stop: 08/27/19 15:25 Trazodone HCl (Desyrel) 50 mg PO HS PRN PRN Reason: Sleep Stop: 08/28/19 09:55 Mental Health & Subst Abuse Tx Psychiatrist Name of Psychiatrist: [facility] MANJEET Roman Psychiatrist's Date of Appointment with Psychiatrist: 08/09/19 Time of Appointment with Psychiatrist: 4:00 p.m. Psychiatric Appointment Comment: [address], [place] Therapist Name of Therapist: Torqeedo Brock Barron Therapist's Date of Therapist Appointment: 08/08/19 Time of Therapist Appointment: 11:00 a.m. (please arrive 15 minutes early) Therapy Appointment Comment: [address] [place] Substation Designer Name of Substation Designer: None Post Discharge Appointments Primary Care Physician Name Of Family Doctor: [facility] - Dr Hinojosa Primary Care Date of Appointment with PCP: 08/11/19 Provider Appointment Comment: [address], [address], [place] Contact Information Discharge Discharge Address: [facility] [address] [place], [place] [address] CPT Code CPT Code 04919
[2019-07-30] MEDS: ARIPiprazole 5 MG TAB PO SCH (10:32)
[2019-07-30] MEDS: ESCITALOPRAM OXALATE 10 MG TAB PO SCH (10:35)
[2019-07-30] MEDS: NICOTINE 14 MG/24 HR PATCH TD SCH (10:35)
[2019-07-30] MEDS: TRAZODONE HCL 50 MG TAB PO PRN (21:05)
--- NOTE | 2019-07-31 07:05 | Psychiatric Progress Note ---
Date of Service July 31, 2019 Impression / Recommendations Impression 28-year-old female with bipolar 2 disorder who is admitted with severe depression and was started on aripiprazole and escitalopram on admission. She is disappointed that she is taking medication, as she prefers to try to manage mood without psychotropics, but also admits her mood episodes have been unmanageable and caused significant distress for her. She continues to endorse severe depression and suicidal thoughts, and inpatient treatment remains medically necessary. (1) Bipolar disorder: 07/29/19 -The patient indicates that there has been some question concerning her correct diagnosis in the past. However, she does appear to meet criteria for bipolar disorder type II. -We discussed a number of options for mood stabilization, and it may be that the only mood stabilizer that she is ever taken is lithium. She was not able to tolerate lithium, and she suggests that there may have been others that she cannot of. She believes, however, that she has not taken aripiprazole for depression or for mood stabilization. -Begin aripiprazole 2.5 mg at bedtime and titrate as indicated and tolerated. Material risks and anticipated benefits of aripiprazole were reviewed with the patient and she indicated understanding. -Begin Lexapro 5 mg as a test dose and continue daily with titration as tolerated and indicated. Material risks and anticipated benefits of Lexapro were reviewed with the patient and she indicated understanding. -Depending upon the patient's response to the above, trials of lamotrigine, or valproic acid may be indicated. -An impediment to treatment may be the patient's fear of gaining weight. The patient was counseled regarding the risk of weight gain and psychiatric medications. She had not been able to tolerate bupropion and she also had not been able to tolerate venlafaxine. She is aware that these medications do not in and of themselves cause weight gain, but may stimulate the appetite and certain cravings that need to be managed to avoid excessive weight gain. -Encourage participation in individual, group, and activity therapies to learn improved individual coping strategies. 07/30 - Continue escitalopram and aripiprazole. Fasting labs ordered for tomorrow for baseline on an atypical. 07/31 - Reviewed FG and FLP with patient; all values WNLs. - Increase aripiprazole to 5mg qam and continue escitalopram 5mg daily. -Encourage group attendance. (2) Suicidal ideation: 07/29/19 -The patient reports that she has frequent suicidal thoughts, but at the present does not have suicidal plan, nor does she have suicidal intent. -She contracts for safety in the hospital. There is a past history of a suicide attempt approximately 12 years ago. She also engaged in intentional self-injurious behaviors for a number of years, but has not engaged in this behavior for approximately 10 years. -The patient agrees to notify staff if suicidal plan or intent develops. -Inpatient psychiatric hospitalization is the least intensive level of care consistent with the patient's needs due to the patient's past history of experiencing worsening depression and suicidality when psychiatric medications are introduced, and the need to introduce psychiatric medications in a controlled, safe setting. 07/30 -Ongoing SI, but feels safe in the hospital. (3) Anxiety: 07/29/19 -Encourage active participation in scheduled group and activity therapies in order to learn improved individual coping strategies. -Emphasize reliance on known techniques such as crafting origami when anxious or distressed. Inventory Assets Strengths: Intelligent. Employed. Motivated to recovery. Able to access self soothing techniques such as crafting origami. Needs: Mood stabilization. [place] from self-destructive impulses and suicidal ideation. Safe initiation and titration of psychiatric medications. Consistent follow through on Risk Factors Assessment Male: No ( outpatient treatment.) : Yes Do You Have Access To A Gun?: No Health Problems: Yes Mental Health Diagnoses: Yes Substance Use Disorders: Yes Previous Attempt: Yes Previous Attempt; Highly Lethal: No Previous Attempt; Planned: No Previous Attempt; Didn't Tell Anyone: No Family History of Suicide: No Previous Psychiatric Hospitalization: Yes Hopelessness: No Smoker: Yes (Patient reports that she recently stopped smoking.) Protective Factors Assessment [employer] Beliefs: No : No Responsible for Young Children: No Employed: Yes ([employer]) Stable Relationships: Yes Supportive Family: No Good Rapport with Provider: No Absence of Any Risk Factors Above: No Interval History Identifying Information MARIBETH REDDY is a 28-year-old F who currently lives in alone in [place]. She has a history of a history of a mood disorder that has been variously diagnosed as major depression, recurrent, or bipolar disorder. She was admitted on 07/28/19 15:26 on a 201 voluntary commitment for because of persistent suicidal ideation and depression.. Chief Complaint "I feel like I have a few more things that I'm worried about..." Review of Systems Sleep Information Total Hours of Sleep: 8 Sleep Comments: medicated with desyrel for sleep aid Meal Information Percent Meal Consumed - Breakfast: 50 Percent Meal Consumed - Lunch: 50 Percent Meal Consumed - Dinner: 40 Subjective Subjective Patient was seen & assessed and interval progress reviewed with nursing and social work. Staff report she attended groups, had multiple visitors, and reported ongoing depression and felt "lost." She reported anxiety about her cat who used to belong to her mother and might be sick. She requested and received trazodone for sleep. This morning, she says she is worried about her job and her cat, her response to medications, and other things. She was hoping trazodone would help her to sleep through the night, but sleep was still broken and she felt groggy and had a hard time getting up this morning. She reports poor appetite, "I'm not really into food." "The more I eat, the more defeated I feel, just feel like a fat pig." She continues to feel guilty about her problems and the negative effects on her family, reporting she is a burden to them because her grandmother has had to give her thousands of dollars to pay for her manic spending sprees, buy food for her, and her father had to come help her get out of her car, as she was "freaking out, bawling," and felt unable to do anything. She states mood is "if anything, I don't break down as much, but I feel worse towards myself." She talks about her resistance to being "labeled with mental health, I tried to run from that for a long time, and I feel like I failed that I'm taking medicine." Physical Exam Psychiatric Orientation: alert and cooperative Apperance: appropriately dressed, + disheveled and appeared stated age Seated in chair with knees pulled up, nose piercing, holding hands over mouth. Eye Contact: + poor eye contact Motor Behavior: steady gait and station and no abnormal motor movements Speech: normal rate/rhythm/volume of speech Affect: + depressed affect, + anxious affect and + tearful affect Mood: + depressed mood and + anxious mood Thought Process: goal directed thought process Thought Content: + hopelessness, + worthlessness, + guilt and + self deprecation feels she is a burden to family Suicidal Thoughts: + reports suicidal thoughts Ongoing SI Homicidal Thoughts: denies homicidal thoughts Hallucinations: no auditory hallucinations and no visual hallucinations Cognition: recent memory grossly intact, attention grossly intact and language grossly intact Insight: + fair insight Judgement: + fair judgement Vital Signs (Past 24 Hours) Last Vital Signs Temp 36.8 C 07/31/19 06:33 Pulse 75 07/31/19 06:33 Resp 18 07/31/19 06:33 BP 108/69 07/31/19 06:33 Pulse Ox 100 07/28/19 16:10 Results & Data Current Inpatient Medications Current Inpatient Medications: Current Inpatient Medications Acetaminophen (Tylenol) 650 mg PO Q4H PRN PRN Reason: Headache or Minor Fever Stop: 08/27/19 15:25 Al Hydrox/Mg Hydrox/Simethicone (Maalox) 30 ml PO Q4H PRN PRN Reason: GI Upset Stop: 08/27/19 15:25 Aripipraz[facility] (Abilify) [facility] Stop: 08/28/19 21:59 Last Admin: 07/30/19 10:32 Dose: 2.5 mg Documented by: Bismuth Subsalicylate (Kaopectate) 15 ml PO PRN PRN PRN Reason: Loose Stool Stop: 08/27/19 15:25 Escitalopram Oxalate (Lexapro Tab) 5 mg PO QAM [facility] Stop: 08/28/19 09:59 Last Admin: 07/30/19 10:35 Dose: 5 mg Documented by: Hydroxyzine HCl (Vistaril) 25 mg PO Q4H PRN PRN Reason: Anxiety Stop: 08/27/19 15:25 Hydroxyzine HCl (Vistaril) 50 mg PO HSZ PRN PRN Reason: Insomnia Stop: 08/27/19 15:25 Last Admin: 07/28/19 21:18 Dose: 50 mg Documented by: Ibuprofen (Advil) 400 mg PO Q6H PRN PRN Reason: Pain Stop: 08/27/19 15:29 Last Admin: 07/30/19 12:32 Dose: 400 mg Documented by: Magnesium Hydroxide (Milk Of Magnesia) 30 ml PO DAILY PRN PRN Reason: Constipation Stop: 08/27/19 15:25 Miscellaneous (Remove Nicoderm Patch) 1 ea N/A HS AMI Stop: 08/27/19 20:59 Last Admin: 07/30/19 21:07 Dose: Not Given Documented by: Miscellaneous (Order Awaiting Action) 1 ea N/A QS AMI Stop: 08/27/19 16:14 Last Admin: 07/30/19 15:30 Dose: Not Given Documented by: Nicotine (Nicoderm Cq) 14 mg TD DAILY AMI Stop: 08/27/19 15:29 Last Admin: 07/30/19 10:35 Dose: 14 mg Documented by: Nicotine Polacrilex (Nicorette 2mg) 1 piece MT PRN PRN PRN Reason: Nicotine Withdrawal Stop: 08/27/19 15:25 Sodium Chloride ([place] Nasal) 1 - 2 sprays NA PRN PRN PRN Reason: Nasal Dryness/Congestion Stop: 08/27/19 15:25 Trazodone HCl (Desyrel) 50 mg PO HS PRN PRN Reason: Sleep Stop: 08/28/19 09:55 Last Admin: 07/30/19 21:05 Dose: 50 mg Documented by: Mental Health & Subst Abuse Tx Psychiatrist [facility] MANJEET Case Psychiatrist's Date of Appointment with Psychiatrist: 08/09/19 Time of Appointment with Psychiatrist: 4:00 p.m. Psychiatric Appointment Comment: [address] [facility], [place] Therapist Name of Therapist: RedBeeTabitha Barron Therapist's Date of Therapist Appointment: 08/08/19 Time of Therapist Appointment: 11:00 a.m. (please arrive 15 minutes early) Therapy Appointment Comment: [address] [facility] Forex Trader Name of Forex Trader: None Post Discharge Appointments Primary Care Physician Name Of Family Doctor: [facility] - Dr Hinojosa Primary Care Date of Appointment with PCP: 08/11/19 Provider Appointment Comment: [address], Suite [facility], [place] Contact Information Discharge Discharge Address: [address] [place] [id number] CPT Code CPT Code 73742
[2019-07-31 08:41] LABS: Glucose Fasting 77 mg/dl (70-99)
[2019-07-31 08:47] LABS: Chol HDL Ratio 3; Cholesterol 101 mg/dl (0-200); HDL Cholesterol 34 mg/dl; LDL Cholesterol Calculated 51 mg/dl; Triglycerides 78 mg/dl (0-150); VLDL Cholesterol 16 mg/dl
[2019-07-31] MEDS: ESCITALOPRAM OXALATE 10 MG TAB PO SCH (10:11)
[2019-07-31] MEDS: ARIPiprazole 5 MG TAB PO SCH (10:11)
[2019-07-31] MEDS: NICOTINE 14 MG/24 HR PATCH TD SCH (10:19)
[2019-07-31] MEDS ORDERED: ARIPiprazole 5 MG TAB PO STA (11:02)
[2019-08-01] MEDS: ESCITALOPRAM OXALATE 10 MG TAB PO SCH (08:34)
[2019-08-01] MEDS: NICOTINE 14 MG/24 HR PATCH TD SCH (08:35)
--- NOTE | 2019-08-01 08:52 | Psychiatric Progress Note ---
Date of Service August 01, 2019 Impression / Recommendations Impression 28-year-old female with bipolar 2 disorder who is admitted with severe depression and was started on aripiprazole and escitalopram on admission. She is disappointed that she is taking medication, as she prefers to try to manage mood without psychotropics, but also admits her mood episodes have been unmanageable and caused significant distress for her. With ongoing education, she reports better understanding of benefits of psychotropic medications. She continues to endorse severe depression and suicidal thoughts, and inpatient treatment remains medically necessary. (1) Bipolar disorder: 07/29/19 -The patient indicates that there has been some question concerning her correct diagnosis in the past. However, she does appear to meet criteria for bipolar disorder type II. -We discussed a number of options for mood stabilization, and it may be that the only mood stabilizer that she is ever taken is lithium. She was not able to tolerate lithium, and she suggests that there may have been others that she cannot of. She believes, however, that she has not taken aripiprazole for depression or for mood stabilization. -Begin aripiprazole 2.5 mg at bedtime and titrate as indicated and tolerated. Material risks and anticipated benefits of aripiprazole were reviewed with the patient and she indicated understanding. -Begin Lexapro 5 mg as a test dose and continue daily with titration as tolerated and indicated. Material risks and anticipated benefits of Lexapro were reviewed with the patient and she indicated understanding. -Depending upon the patient's response to the above, trials of lamotrigine, or valproic acid may be indicated. -An impediment to treatment may be the patient's fear of gaining weight. The patient was counseled regarding the risk of weight gain and psychiatric medications. She had not been able to tolerate bupropion and she also had not been able to tolerate venlafaxine. She is aware that these medications do not in and of themselves cause weight gain, but may stimulate the appetite and certain cravings that need to be managed to avoid excessive weight gain. -Encourage participation in individual, group, and activity therapies to learn improved individual coping strategies. 07/30 - Continue escitalopram and aripiprazole. Fasting labs ordered for tomorrow for baseline on an atypical. 07/31 - Reviewed FG and FLP with patient; all values WNLs. - Increase aripiprazole to 5mg qam and continue escitalopram 5mg daily. -Encourage group attendance. 08/01 - Pt reports feeling "in an upswing" over the past 1+ days. While she does not appear to be activated, she admits to "my heart's racing and I'm thinking of all the things I want to buy." - Reviewed education regarding her medication regimen - explanation provided regarding use of antidepressant medications in combination with mood stabilization agents - Pt is agreeable to titration of aripiprazole to 10mg tomorrow morning. Will continue escitalopram at 5mg for now, with ongoing monitoring - not showing signs of acute derek/activation but could discontinue antidepressant temporarily if these develop - Will titrate hydroxyzine to 100mg qHS prn for sleep, as patient felt trazodone was overly sedating (2) Suicidal ideation: 07/29/19 -The patient reports that she has frequent suicidal thoughts, but at the present does not have suicidal plan, nor does she have suicidal intent. -She contracts for safety in the hospital. There is a past history of a suicide attempt approximately 12 years ago. She also engaged in intentional self-injurious behaviors for a number of years, but has not engaged in this behavior for approximately 10 years. -The patient agrees to notify staff if suicidal plan or intent develops. -Inpatient psychiatric hospitalization is the least intensive level of care consistent with the patient's needs due to the patient's past history of experiencing worsening depression and suicidality when psychiatric medications are introduced, and the need to introduce psychiatric medications in a controlled, safe setting. 07/30 -Ongoing SI, but feels safe in the hospital. 08/01 - Ongoing, at times more passive in nature - but remains unable to contract for safety outside of the hospital setting (3) Anxiety: 07/29/19 -Encourage active participation in scheduled group and activity therapies in order to learn improved individual coping strategies. -Emphasize reliance on known techniques such as crafting origami when anxious or distressed. Inventory Assets Strengths: Intelligent. Employed. Motivated to recovery. Able to access self soothing techniques such as crafting origami. Needs: Mood stabilization. [place]berry from self-destructive impulses and suicidal ideation. Safe initiation and titration of psychiatric medications. Consistent follow through on Risk Factors Assessment Male: No ( outpatient treatment.) : Yes Do You Have Access To A Gun?: No Health Problems: Yes Mental Health Diagnoses: Yes Substance Use Disorders: Yes Previous Attempt: Yes Previous Attempt; Highly Lethal: No Previous Attempt; Planned: No Previous Attempt; Didn't Tell Anyone: No Family History of Suicide: No Previous Psychiatric Hospitalization: Yes Hopelessness: No Smoker: Yes (Patient reports that she recently stopped smoking.) Protective Factors Assessment Roman Catholic Beliefs: No : No Responsible for Young Children: No Employed: Yes ([employer]) Stable Relationships: Yes Supportive Family: No Good Rapport with Provider: No Absence of Any Risk Factors Above: No Interval History Identifying Information MARIBETH REDDY is a 28-year-old F who currently lives in alone in [place]. She has a history of a history of a mood disorder that has been variously diagnosed as major depression, recurrent, or bipolar disorder. She was admitted on 07/28/19 15:26 on a 201 voluntary commitment for because of persistent suicidal ideation and depression.. Chief Complaint "Up and down. It's been nice because I feel safe here, but I'm still not super great." Review of Systems Notes Constitutional: reports improvement in AM grogginess today, though poor sleep is ongoing Cardiovascular: denied Respiratory: denied Gastrointestinal: denied Neurological: denied Psychiatric: denies symptoms other than stated above Total of at least 10 systems reviewed, pertinent positives as above and in HPI. Sleep Information Total Hours of Sleep: 6.75 Sleep Comments: medicated with desyrel for sleep aid Meal Information Percent Meal Consumed - Breakfast: 0 Percent Meal Consumed - Lunch: 50 Percent Meal Consumed - Dinner: 50 Subjective Subjective Patient was seen & assessed and interval progress reviewed with treatment team. Staff reports the patient continues to decline a meeting with family, despite various family members visiting during her stay. She is willing for a meeting with a friend to discuss safety planning. Pt was seen today to assess progress since admission. Pt states she has been "up and down" since her admission, stating that she feels safe here and appreciates the distraction of groups and conversations with peers. However, she states that her mood is "still not super great." Pt verbalizes some vague depressive symptoms, but then reports feeling as though her mood is now in an "upswing, I feel manicy." Pt states that she is experiencing some symptoms that are generally related to manic phases - "my heart is racing and I thinking of all the things I want to buy." Pt also states she did not sleep very well last evening - reporting life-like dreaming for the past few nights as well as some vague "eye fluttering" while closing her eyes to go to bed. We continued to discuss her medication regimen and the way in which antidepressant medications and mood stabilization agents can function together. Pt was asked to continue to monitor mood throughout the day - as she has already received her 5mg dose of escitalopram. After providing education on benefits of mood stabilization - patient is agreeable to increasing her dose of aripiprazole to 10mg tomorrow morning. Pt does state, "Although I like how I feel, I know it 's destructive in the long run. I am going to miss it though." Pt becomes tearful when discussing this. Pt admits to ongoing SI "off and on", which has slowly become more passive in nature. Pt admits to feeling safe on the unit, but is unsure of her ability to maintain that safety outside of the hospital setting at this time. Physical Exam Psychiatric Orientation: alert, oriented x 3 and cooperative Apperance: appropriately dressed, appropriately groomed and appeared stated age Overweight, female seated in no acute distress. Dressed casually in a sweater and sweat pants. Blonde hair is short and mildly disheveled. Level of hygiene appears appropriate. Eye Contact: good eye contact Motor Behavior: steady gait and station and no abnormal motor movements Speech: normal rate/rhythm/volume of speech (spontaneous) Affect: + depressed affect and + tearful affect; + mood not congruent with affect (self-report of being in an "upswing", though does not appear activated) Mood: + depressed mood Pt gives conflicting reports regarding mood: "up and down", "still not super great", but reports being in an "upswing, manic". Pt admits to ongoing depressive symptoms and passive SI, despite stating she has noticed "a huge improvement in mood" Thought Process: goal directed thought process, clear/coherent thought process and thought association intact Thought Content: reality based without delusions Suicidal Thoughts: denies suicidal intent (feels safe in the hospital setting); + reports suicidal thoughts (ongoing SI, somewhat more passive in nature) Homicidal Thoughts: denies homicidal thoughts Hallucinations: no auditory hallucinations and no visual hallucinations Cognition: remote memory grossly intact, attention grossly intact and language g rossly intact Estimated Intelligence: consistent with education level Insight: + fair insight Judgement: + fair judgement Vital Signs (Past 24 Hours) Last Vital Signs Temp 36.7 C 08/01/19 06:35 Pulse 81 08/01/19 06:36 Resp 18 08/01/19 06:35 BP 108/74 08/01/19 06:36 Pulse Ox 100 07/28/19 16:10 Results & Data Current Inpatient Medications Current Inpatient Medications: Current Inpatient Medications Acetaminophen (Tylenol) 650 mg PO Q4H PRN PRN Reason: Headache or Minor Fever Stop: 08/27/19 15:25 Al Hydrox/Mg Hydrox/Simethicone (Maalox) 30 ml PO Q4H PRN PRN Reason: GI Upset Stop: 08/27/19 15:25 A[facility]ip[facility]) [facility] [place] Stop: 08/31/19 08:59 Last Admin: 08/01/19 08:34 Dose: 5 mg Documented by: Bismuth Subsalicylate (Kaopectate) 15 ml PO PRN PRN PRN Reason: Loose Stool Stop: 08/27/19 15:25 Escitalopram Oxalate (Lexapro Tab) [facility] [place] Stop: 08/28/19 09:59 Last Admin: 08/01/19 08:34 Dose: 5 mg Documented by: Hydroxyzine HCl (Vistaril) 25 mg PO Q4H PRN PRN Reason: Anxiety Stop: 08/27/19 15:25 Hydroxyzine HCl (Vistaril) 50 mg PO HSZ PRN PRN Reason: Insomnia Stop: 08/27/19 15:25 Last Admin: 07/28/19 21:18 Dose: 50 mg Documented by: Ibuprofen (Advil) 400 mg PO Q6H PRN PRN Reason: Pain Stop: 08/27/19 15:29 Last Admin: 07/30/19 12:32 Dose: 400 mg Documented by: Magnesium Hydroxide (Milk Of Magnesia) 30 ml PO DAILY PRN PRN Reason: Constipation Stop: 08/27/19 15:25 Miscellaneous (Remove Nicoderm Patch) 1 ea N/A HS [facility] Stop: 08/27/19 20:59 Last Admin: 07/31/19 21:17 Dose: Not Given Documented by: Miscellaneous (Order Awaiting Action) 1 ea N/A QS [facility]I Stop: 08/27/19 16:14 Last Admin: 08/01/19 08:41 Dose: Not Given Documented by: Nicotine (Nicoderm Cq) 14 mg TD DAILY AMI Stop: 08/27/19 15:29 Last Admin: 08/01/19 08:35 Dose: 14 mg Documented by: Nicotine Polacrilex (Nicorette 2mg) 1 piece MT PRN PRN PRN Reason: Nicotine Withdrawal Stop: 08/27/19 15:25 Sodium Chloride ([place] Nasal) 1 - 2 sprays NA PRN PRN PRN Reason: Nasal Dryness/Congestion Stop: 08/27/19 15:25 Trazodone HCl (Desyrel) 50 mg PO HS PRN PRN Reason: Sleep Stop: 08/28/19 09:55 Last Admin: 07/30/19 21:05 Dose: 50 mg Documented by: Mental Health & Subst Abuse Tx Psychiatrist Name of Psychiatrist: [facility] MANJEET Case Psychiatrist's Date of Appointment with Psychiatrist: 08/09/19 Time of Appointment with Psychiatrist: 4:00 p.m. [facility]ment [facility] [address] [facility] [place] [facility] Name of Therapist: Riley Barron Therapist's Date of Therapist Appointment: 08/08/19 Time of Therapist Appointment: 11:00 a.m. (please arrive 15 minutes early) Therapy Appointment Comment: [address] [place] [employer] Name of [employer] Guard: None Post Discharge Appointments Primary Care Physician Name Of Family Doctor: [facility] - Dr Hinojosa Primary [facility] Date of Appointment with PCP: 08/11/19 Provider Appointment Comment: [phone], [address], [place] Contact Information Discharge Discharge Address: [facility] [place] [address] CPT Code CPT Code 47762
[2019-08-01] MEDS ORDERED: ARIPiprazole 5 MG TAB PO SCH (09:00)
[2019-08-01] MEDS: TRAZODONE HCL 50 MG TAB PO PRN (21:47)
[2019-08-02] MEDS: ARIPiprazole 10 MG TAB PO SCH (07:38)
[2019-08-02] MEDS: NICOTINE 14 MG/24 HR PATCH TD SCH (07:39)
[2019-08-02] MEDS: ESCITALOPRAM OXALATE 10 MG TAB PO SCH (07:39)
[2019-08-02] MEDS: NICOTINE 7 MG/24 HR TDSY TD SCH (09:18)
--- NOTE | 2019-08-02 10:25 | Psychiatric Progress Note ---
Date of Service August 02, 2019 Impression / Recommendations Impression 28-year-old female with bipolar 2 disorder who is admitted with severe depression and was started on aripiprazole and escitalopram on admission. She is disappointed that she is taking medication, as she prefers to try to manage mood without psychotropics, but also admits her mood episodes have been unmanageable and caused significant distress for her. With ongoing education, she reports better understanding of benefits of psychotropic medications. While she admits to improvement in mood, it is important to ensure stability of mood and anxiety to reduce risk of decompensation at discharge. Inpatient treatment remains medically necessary. (1) Bipolar disorder: 07/29/19 -The patient indicates that there has been some question concerning her correct diagnosis in the past. However, she does appear to meet criteria for bipolar disorder type II. -We discussed a number of options for mood stabilization, and it may be that the only mood stabilizer that she is ever taken is lithium. She was not able to tolerate lithium, and she suggests that there may have been others that she cannot of. She believes, however, that she has not taken aripiprazole for dep ression or for mood stabilization. -Begin aripiprazole 2.5 mg at bedtime and titrate as indicated and tolerated. Material risks and anticipated benefits of aripiprazole were reviewed with the patient and she indicated understanding. -Begin Lexapro 5 mg as a test dose and continue daily with titration as tolerated and indicated. Material risks and anticipated benefits of Lexapro were reviewed with the patient and she indicated understanding. -Depending upon the patient's response to the above, trials of lamotrigine, or valproic acid may be indicated. -An impediment to treatment may be the patient's fear of gaining weight. The patient was counseled regarding the risk of weight gain and psychiatric medications. She had not been able to tolerate bupropion and she also had not been able to tolerate venlafaxine. She is aware that these medications do not in and of themselves cause weight gain, but may stimulate the appetite and certain cravings that need to be managed to avoid excessive weight gain. -Encourage participation in individual, group, and activity therapies to learn improved individual coping strategies. 07/30 - Continue escitalopram and aripiprazole. Fasting labs ordered for tomorrow for baseline on an atypical. 07/31 - Reviewed FG and FLP with patient; all values WNLs. - Increase aripiprazole to 5mg qam and continue escitalopram 5mg daily. -Encourage group attendance. 08/01 - Pt reports feeling "in an upswing" over the past 1+ days. While she does not appear to be activated, she admits to "my heart's racing and I'm thinking of all the things I want to buy." - Reviewed education regarding her medication regimen - explanation provided regarding use of antidepressant medications in combination with mood stabilization agents - Pt is agreeable to titration of aripiprazole to 10mg tomorrow morning. Will continue escitalopram at 5mg for now, with ongoing monitoring - not showing signs of acute derek/activation but could discontinue antidepressant temporarily if these develop - Will titrate hydroxyzine to 100mg qHS prn for sleep, as patient felt trazodone was overly sedating 08/02 - Continue as above - Continue to provide education on medication regimen and benefits of medication compliance for long-term treatment success (2) Suicidal ideation: 07/29/19 -The patient reports that she has frequent suicidal thoughts, but at the present does not have suicidal plan, nor does she have suicidal intent. -She contracts for safety in the hospital. There is a past history of a suicide attempt approximately 12 years ago. She also engaged in intentional self-injurious behaviors for a number of years, but has not engaged in this behavior for approximately 10 years. -The patient agrees to notify staff if suicidal plan or intent develops. -Inpatient psychiatric hospitalization is the least intensive level of care consistent with the patient's needs due to the patient's past history of e xperiencing worsening depression and suicidality when psychiatric medications are introduced, and the need to introduce psychiatric medications in a controlled, safe setting. 07/30 -Ongoing SI, but feels safe in the hospital. 08/01 - Ongoing, at times more passive in nature - but remains unable to contract for safety outside of the hospital setting 08/02 - Denies SI thus far today (3) Anxiety: 07/29/19 -Encourage active participation in scheduled group and activity therapies in order to learn improved individual coping strategies. -Emphasize reliance on known techniques such as crafting origami when anxious or distressed. 08/02 - Reports ongoing anxiety related to her job absences and not hearing back about FMLA - Pt admits to concern that a negative response from her employer may lead to a "melt down" Inventory Assets Strengths: Intelligent. Employed. Motivated to recovery. Able to access self soothing techniques such as crafting origami. Needs: Mood stabilization. [place] from self-destructive impulses and suicidal ideation. Safe initiation and titration of psychiatric medications. Consistent follow through on Risk Factors Assessment Male: No ( outpatient treatment.) : Yes Do You Have Access To A Gun?: No Health Problems: Yes Mental Health Diagnoses: Yes Substance Use Disorders: Yes Previous Attempt: Yes Previous Attempt; Highly Lethal: No Previous Attempt; Planned: No Previous Attempt; Didn't Tell Anyone: No Family History of Suicide: No Previous Psychiatric Hospitalization: Yes Hopelessness: No Smoker: Yes (Patient reports that she recently stopped smoking.) Protective Factors Assessment Mormon Beliefs: No : No Responsible for Young Children: No Employed: Yes ([employer]) Stable Relationships: Yes Supportive Family: No Good Rapport with Provider: No Absence of Any Risk Factors Above: No Interval History Identifying Information MARIBETH REDDY is a 28-year-old F who currently lives in alone in [place]. She has a history of a history of a mood disorder that has been variously diagnosed as major depression, recurrent, or bipolar disorder. She was admitted on 07/28/19 15:26 on a 201 voluntary commitment for because of persistent suicidal ideation and depression. Chief Complaint "Up and down. I came down from the derek about senior living through the day yesterday." Review of Systems Notes Constitutional: reports fatigue this morning Cardiovascular: denied Respiratory: denied Gastrointestinal: denied Neurological: denied Psychiatric: denies symptoms other than stated above Total of at least 10 systems reviewed, pertinent positives as above and in HPI. Sleep Information Total Hours of Sleep: 7.5 Sleep Comments: recieved an hs prn dose of desyrel for sleep aid Meal Information Percent Meal Consumed - Breakfast: 75 Percent Meal Consumed - Lunch: 50 Percent Meal Consumed - Dinner: 50 Subjective Subjective Patient was seen & assessed and interval progress reviewed with nursing and social work. Staff report the patient had a meeting with a friend yesterday, and the relationship seemed supportive. Pt had a visit from her father, and had verbalized a desire for grief counseling after discharge to further address emotions related to the loss of her mother. Pt was seen today to assess progress since admission. Pt states she is feeling "up and down today." She shares that she "came down from my derek senior living through the day" yesterday. Pt states that after she began to notice a more comfortable mood, her father called the unit. Pt reports that his request to speak to the nurses made her concerned something bad was happening, but later learned that the situation was not as dire as she had presumed. She reports the visit with him and other family members last evening went well. Pt states she had a beneficial meeting with a friend yesterday, and feels that she was able to request appropriate support from this individual. This included, "asking him to pry a bit more when I say I'm not doing well, that way he knows if he should be worried or if there is something else he can do." Pt reports "better moods since being in here, but I'm still really worried about my leave from work. I would be really worried about going home before I hear if I have a job or not." Pt states she is concerned she would have a "melt down" if she is told she is fired from her current place of employment. Despite ongoing work-related stress, she states her mood is "ok, no scary highs and no scary lows." Pt denies SI thus far today. Pt denies other needs or concerns at this time. Physical Exam Psychiatric Orientation: alert, oriented x 3 and cooperative (and pleasant) Apperance: appropriately dressed (casually in hoodie sweatshirt and sweatpants), + disheveled (mildly; hair is somewhat unkempt) and appeared stated age Eye Contact: good eye contact Motor Behavior: steady gait and station and no abnormal motor movements Speech: normal rate/rhythm/volume of speech Affect: + blunted affect (not appearing overtly depressed, but mildly fatigued) and mood congruent with affect; no depressed affect Mood: + anxious mood (specifically regarding her work concerns); no depressed mood Reports mood is "ok, no scary highs and no scary lows" Thought Process: goal directed thought process, linear/logical thought process and clear/coherent thought process Thought Content: + preoccupation (with anxiety surrounding potential work issues) and reality based without delusions Suicidal Thoughts: denies suicidal thoughts and denies suicidal intent Homicidal Thoughts: denies homicidal thoughts Hallucinations: no auditory hallucinations and no visual hallucinations Cognition: remote memory grossly intact, attention grossly intact and language grossly intact Estimated Intelligence: consistent with education level Insight: + fair insight Judgement: + fair judgement Vital Signs (Past 24 Hours) Last Vital Signs Temp 36.7 C 08/02/19 06:45 Pulse 87 08/02/19 06:46 Resp 18 08/02/19 06:45 BP 115/81 08/02/19 06:46 Pulse Ox 100 07/28/19 16:10 Results & Data Laboratory Results Laboratory Results - last 24 hr 07/28/19 13:37 U Marijuana THC Carboxy 97 A Current Inpatient Medications Current Inpatient Medications: Current Inpatient Medications Acetaminophen (Tylenol) 650 mg PO Q4H PRN PRN Reason: Headache or Minor Fever Stop: 08/27/19 15:25 Al Hydrox/Mg Hydrox/Simethicone (Maalox) 30 ml PO Q4H PRN PRN Reason: GI Upset Stop: 08/27/19 15:25 [facility]) [facility] [place]: 09/01/19 08:59 Last Admin: 08/02/19 07:38 Dose: 10 mg Documented by: Bismuth Subsalicylate (Kaopectate) 15 ml PO PRN PRN PRN Reason: Loose Stool Stop: 08/27/19 15:25 Escitalopram Oxalate (Lexapro Tab) 5 mg PO QAM [facility] Stop: 08/28/19 09:59 Last Admin: 08/02/19 07:39 Dose: 5 mg Documented by: Hydroxyzine HCl (Vistaril) 25 mg PO Q4H PRN PRN Reason: Anxiety Stop: 08/27/19 15:25 Hydroxyzine HCl (Vistaril) 100 mg PO HSZ PRN PRN Reason: Insomnia Stop: 08/27/19 15:25 Ibuprofen (Advil) 400 mg PO Q6H PRN PRN Reason: Pain Stop: 08/27/19 15:29 Last Admin: 07/30/19 12:32 Dose: 400 mg Documented by: Magnesium Hydroxide (Milk Of Magnesia) 30 ml PO DAILY PRN PRN Reason: Constipation Stop: 08/27/19 15:25 Miscellaneous (Remove Nicoderm Patch) 1 ea N/A HS AMI Stop: 08/27/19 20:59 Last Admin: 08/01/19 21:51 Dose: Not Given Documented by: Miscellaneous (Order Awaiting Action) 1 ea N/A QS AMI Stop: 08/27/19 16:14 Last Admin: 08/02/19 09:12 Dose: Not Given Documented by: Nicotine (Nicoderm Cq) 7 mg TD DAILY AMI Stop: 09/01/19 08:59 Last Admin: 08/02/19 09:18 Dose: 7 mg Documented by: Nicotine Polacrilex (Nicorette 2mg) 1 piece MT PRN PRN PRN Reason: Nicotine Withdrawal Stop: 08/27/19 15:25 Sodium Chloride ([place] Nasal) 1 - 2 sprays NA PRN PRN PRN Reason: Nasal Dryness/Congestion Stop: 08/27/19 15:25 Mental Health & Subst Abuse Tx Psychiatrist Name of Psychiatrist: MANJEET Lowe Psychiatrist's Date of Appointment with Psychiatrist: 08/09/19 Time of Appointment with Psychiatrist: 4:00 p.m. Psychiatric Appointment Comment: [address], [place], [place] Therapist Name of Therapist: Riley Barron Therapist's Date of Therapist Appointment: 08/08/19 Time of Therapist Appointment: 11:00 a.m. (please arrive 15 minutes early) Therapy Appointment Comment: [address] [place] Care [place] Name of Care Partner: None Post Discharge Appointments Primary Care Physician Name Of Family Doctor: [facility] - Dr Hinojosa Primary Care Date of Appointment with PCP: 08/11/19 Provider Appointment Comment: [address], [address], [place] Other #1: Name of Aftercare Appointment: [facility] Phone Number of Aftercare Appointment: President Brock Roblero Time of Aftercare Appointment: [email or web address] Clean; [phone] Aftercare Appointment Comment: Additional resource if needed #2: Name of Aftercare Appointment: [facility] Phone Number of Aftercare Appointment: President Brock Burks Time of Aftercare Appointment: [email or web address]; [phone] Aftercare Appointment Comment: Additional resource if needed Contact Information Discharge Discharge Address: [address], [place], [place] [address] CPT Code CPT Code 00907
[2019-08-03] MEDS: ESCITALOPRAM OXALATE 10 MG TAB PO SCH (08:30)
[2019-08-03] MEDS: ARIPiprazole 10 MG TAB PO SCH (08:30)
[2019-08-03] MEDS: NICOTINE 7 MG/24 HR TDSY TD SCH (08:31)
--- NOTE | 2019-08-03 09:55 | Discharge Summary ---
Date of Service August 03, 2019 History of Present Illness The patient is a 28-year-old woman who reports a long-standing history, dating back to her early teenage years, of episodes of mood alterations. These mood alterations have included symptoms of depression as well as symptoms of hypomania. More specifically, the patient reports that she has periods of time ranging from a matter of several weeks to several months during which she feels depressed, loses her ability to experience pleasure, withdraws from other people, has low energy, has difficulty with both initial and intermittent insomnia, experiences mood lability, and has (there is a history of 1 suicide attempt by overdose at the age of 16.) The patient also reports that, perhaps 4 or may be 5 times a year she has episodes during which she feels the opposite of depressed. These episodes typically last "about a week," and are characterized by elevated mood, expansive mood, increased energy, decreased desire for sleep, impulsive spending, impulsive sexual activity, which she describes as being pressured speech and flight of ideas. (Her words were, "my mouth starts moving faster than my brain is working.") The patient reports that she has been experiencing worsening depression over the course of the past month, and identifies a romantic disappointment as being the precipitating cause. Specifically, she notes that she had been dating a a much older person, a man in his early to mid 50s. She notes that she loved the man, even though she realizes that the relationship probably did not have a long-term future given the significant age difference. The patient noticed that her boyfriend seem to be withdrawing from her, emotionally, and initially she attributed this to the fact that both she and he were in the process of smoking cessation. However, eventually, the patient confronted her boyfriend with the suspicion that he may have found someone else and, at that point, he confessed that he had, in fact, become involved with a woman closer to his own age and he abruptly ended the relationship with the patient. The patient tells us that she is sad about the relationship ending, but is also very distressed that she had such a strong emotional reaction to the end of the relationship and notes that she feels "st upid" for allowing it to precipitate another episode of depression with suicidality. In reference to suicidality, the patient notes that she does not have any specific suicidal plan or intent, but is concerned because the depression has been worsening lately. She had been followed on an outpatient basis, at least intermittently, by various providers at [facility] in [place]. She had not engaged in psychiatric treatment for several years, but recently arranged for an evaluation by KIMBERLEE Cook at [facility]. At the time of the intake evaluation, she acknowledged her suicidal thoughts and also reported that she had had a long history of difficulty tolerating multiple different psychiatric medications. Together with Elida, it was decided that the best course of action would be to admit the patient to the hospital because of the risk associated with starting psychiatric medications and a person who had had some any problems with him in the past, and within the context of her thoughts of suicide and her worsening depression. Complicating the clinical picture is the fact that the patient acknowledges periodic "recreational" use of by nasal insufflation. She reports that she "snorts" methamphetamine several times a year, and rarely uses it for more than 1 day. Her manic episodes reportedly occur independent of methamphetamine abuse and typically last for a week or longer. Physical Exam Psychiatric Orientation: alert, oriented x 3 and cooperative (and pleasant) Apperance: appropriately dressed, appropriately groomed and appeared stated age Eye Contact: good eye contact Motor Behavior: steady gait and station and no abnormal motor movements Speech: normal rate/rhythm/volume of speech Affect: euthymic affect (bright, smiling and laughing appropriately ) and mood congruent with affect; no depressed affect Mood: no depressed mood ("ok, a lot better" and "a weight has been lifted") Thought Process: goal directed thought process, linear/logical thought process and clear/coherent thought process Thought Content: reality based without delusions; no hopelessness and no worthlessness Suicidal Thoughts: denies suicidal thoughts and denies suicidal intent Reports passive thoughts to escape "even on good days", but denies active SI, thoughts or intent to harm herself Homicidal Thoughts: denies homicidal thoughts Hallucinations: no auditory hallucinations and no visual hallucinations Cognition: remote memory grossly intact, attention grossly intact and language grossly intact Estimated Intelligence: consistent with education level Insight: good insight Judgement: good judgement Vital Signs (Past 24 Hours) Last Vital Signs Temp 36.8 C 08/03/19 06:53 Pulse 83 08/03/19 06:55 Resp 18 08/03/19 06:53 BP 124/78 08/03/19 06:55 Pulse Ox 100 07/28/19 16:10 Principal Diagnosis - Bipolar disorder, type II - Anxiety Psychiatric Data 28-year-old female admitted voluntarily for inpatient psychiatric treatment on 07/28/19 due to worsening depression and suicidal ideation. Pt had newly established care at [facility] [place], and had verbalized her suicidal ideation to her prescriber during the initial evaluation. It was reported that she was recommended for mental health evaluation in the ED due to her long-standing history, difficulty with medication initiation in the past, and reports of suicidal ideation. Pt reportedly has a long-history of mood alterations, and various previous psychiatric diagnoses. Information provided by patient on a dmission seems to be best described as bipolar disorder, type II. Pt was agreeable to initiation of aripiprazole and escitalopram upon admission, after verbalizing understanding of associated risks, benefits, and potential side effects. During her hospitalization, she was titrated to a dose of 10mg of aripiprazole and 5mg of escitalopram. Pt had reports some racing thoughts several days the addition of escitalopram, but did not appear to be activated or demonstrate manic symptoms. Symptoms lasted only a few hours and stable mood was reported for the remainder of her admission. Pt denied concerns for medication side effects, and fasting labs obtained with initiation of an atypical antipsychotic were all WNLs. Pt reported significant work stress, as she had been missing several days due to her worsening depression. During her admission, she was able to confirm that [facility] had been approved and would cover her hospitalization, along with future aftercare appointments. Pt actively pa rticipated in group and recreational programming and was supportive of peers. During the course of her admission, the patient was agreeable to involving a friend in a support meeting with social work. They were able to discuss safety planning. Pt also completed a safety plan, which was personally reviewed by this provider prior to discharge. Aftercare appointments were rescheduled to allow for timely follow-up after discharge. It is recommended that the patient continue outpatient treatment with both her therapist and psychiatric prescriber. Based on review of patient's case and their current presentation, risk of harm to self or others is no longer perceived to be acute. Management of symptoms on an outpatient basis seems the most appropriate and least restrictive setting. Pt seems appropriate for discharge with recommendation for consistent follow-up with outpatient psychiatric prescriber and therapist. Pt verbalized understanding of discharge plan reviewed and is agreeable with plan to be discharged home today. Day of Discharge Assessment Patient's case was reviewed and discussed during treatment team. Staff report the patient was able to get in touch with her HR department, who reassured her that her FMLA was approved. She reported to staff that this was very comforting for her. Pt rated her mood a 5-6/10 and "optimistic" last evening. Pt was seen today to assess readiness for discharge. Pt states that she slept well last evening with the use of ear plugs, not requiring use of prn medications. She reports feeling less groggy so far this morning. Otherwise, she denies medication concerns or side effects. Pt shares with this provider information regarding contact with her employer. She states her FMLA was approved, and it was reported it will cover her hospital stay as well - with the addition of a return to work letter. She reports this is very reassuring for her, as the uncertainty of her job status remained a rather significant stressor for her. Pt states her mood continues to be stable over the past few days, and she reports now feeling "like a huge weight is lifted." We reviewed estimated length of stay from treatment team being 0-1 days, and patient admitted to feeling ready for discharge today. She verbalized improvement in mood and feeling comfortable with her current medication regimen. Pt denies active SI stating - "even on good days I have thoughts to escape, but I don't feel like I would be lying by saying 'no' if someone asked me if I wanted to hurt myself." She feels reassured by having contact with a friend for a support meeting, feeling better able to verbalize needs in the future. Pt is able to verbalize aspects of her safety plan with this provider, and states she feels comfortable utilizing it along with emergency contacts should they be required. Pt is requesting discharge today, which seems appropriate based in improvements observed in her presentation. At this time, it is recommended that treatment continue in the outpatient setting, as this is the least-restrictive and most appropriate treatment at this time. Pt verbalized understanding of discharge plans and is agreeable with going home today. She denies other needs at this time. ROS: Constitutional: reports improved sleep last evening Cardiovascular: denied Respiratory: denied Gastrointestinal: denied Neurological: denied Psychiatric: denies symptoms other than stated above Total of at least 10 systems reviewed, pertinent positives as above and in HPI. Transition of Care Transition Of Care Record: was reviewed with the patient Advance Directives Advance Directives Information Provided: Yes Advance Directives: No Mental Health Advance Directive: No Advance Directives on File: No Living Will: No Power of Staffing Coordinator: No Advance Directives Reason:: Declines as Mental Health Visit. Risk Factors Assessment Presenting risk factors reviewed on discharge. Precipitating stressors mitigated by: admission for inpatient psychiatric observation and treatment, initiation of medications to target presenting symptoms, attendance of therapeutic treatment groups, development of healthy and effective coping strategies, involvement of outpatient supports, completion of a safety plan, and education on diagnoses. Pt has demonstrated improvement in condition with regard to improvement in stability of mood, resolution of active SI, coordination with work to discuss FMLA status and other stressors, involvement of supports to discuss safety planning, and coordination of care with outpatient providers. At this time, patient is requesting discharge and is no longer considered to be at acute risk of harm to herself or others. Pt will be discharged with recommendation for ongoing outpatient psychiatric treatment. Male: No : Yes Do You Have Access To A Gun?: No Health Problems: Yes Mental Health Diagnoses: Yes Substance Use Disorders: Yes Previous Attempt: Yes Previous Attempt; Highly Lethal: No Previous Attempt; Planned: No Previous Attempt; Didn't Tell Anyone: No Family History of Suicide: No Previous Psychiatric Hospitalization: Yes Hopelessness: No Smoker: Yes (Patient reports that she recently stopped smoking.) Protective Factors Assessment Caodaism Beliefs: No : No Responsible for Young Children: No Employed: Yes ([employer]) Stable Relationships: Yes Supportive Family: No Good Rapport with Provider: No Absence of Any Risk Factors Above: No Tobacco Cessation at Discharge Tobacco Cessation Medication Prescribed at Discharge: Not Applicable/Non-Smoker (had nicotine patch prescribed as home medications, nicotine cessation in process on outpatient basis) Total Time Total Time Spent: Greater Than 30 Minutes Total Time Includes: Examination of the patient, Discharge Planning, Medication Reconciliation and Communication with other providers Discharge Data Lab Results 07/28/19 07/28/19 07/28/19 13:37 13:37 13:37 WBC RBC Hgb Hct MCV MCH MCHC RDW Std Deviation RDW Coeff of Barry Plt Count MPV Immature Gran % (Auto) Neut % (Auto) Lymph % (Auto) Charles % (Auto) Eos % (Auto) Baso % (Auto) Immature Gran # (Auto) Neut # (Auto) Lymph # (Auto) Charles # (Auto) Eos # (Auto) Baso # (Auto) Sodium Potassium Chloride Carbon Dioxide Anion Gap BUN Creatinine Est Cr Clr Drug Dosing Est GFR ( Amer) Est GFR (Non-Af Amer) BUN/Creatinine Ratio Glucose Fasting Glucose Calcium Total Bilirubin AST ALT Alkaline Phosphatase Total Protein Albumin Globulin Albumin/Globulin Ratio Triglycerides Cholesterol LDL Cholesterol, Calc VLDL Cholesterol, Calc HDL Cholesterol Cholesterol/HDL Ratio TSH Urine Color Yellow Urine Appearance Clear Urine pH 6.5 Ur Specific [place] 1.019 Urine Protein Negative Urine Glucose (UA) Negative Urine Ketones Trace H Urine Blood Negative Urine Nitrite Negative Urine Bilirubin Negative Urine Urobilinogen Negative Ur Leukocyte Esterase Trace H Urine WBC (Auto) 5-10 H Urine RBC (Auto) 0-4 U Hyaline Cast (Auto) 1-5 U Epithel Cells (Auto) >30 H Urine Bacteria (Auto) Negative Urine Test Negative Salicylates Urine Opiates Screen Neg Ur Methadone, Qual Neg Acetaminophen Urine Barbiturates Neg Ur Phencyclidine (PCP) Neg U Amphetamin/Meth Scrn Neg MDMA (Ecstasy) Screen Neg U Benzodiazepines Scrn Neg Ur Cocaine Metabolite Neg U Marijuana (THC) Screen Pos H U Marijuana THC Carboxy Ethyl Alcohol mg/dL 07/28/19 07/28/19 07/28/19 13:37 13:40 13:40 WBC 6.58 RBC 4.44 Hgb 14.2 Hct 40.1 MCV 90.3 MCH 32.0 MCHC 35.4 RDW Std Deviation 43.0 RDW Coeff of Barry 13.2 Plt Count 162 MPV 10.0 Immature Gran % (Auto) 0.2 Neut % (Auto) 63.4 Lymph % (Auto) 25.5 Charles % (Auto) 9.0 Eos % (Auto) 1.4 Baso % (Auto) 0.5 Immature Gran # (Auto) 0.01 Neut # (Auto) 4.18 Lymph # (Auto) 1.68 Charles # (Auto) 0.59 Eos # (Auto) 0.09 Baso # (Auto) 0.03 Sodium 144 Potassium 4.0 Chloride 113 H Carbon Dioxide 24 Anion Gap 8.0 BUN 11 Creatinine 0.75 Est Cr Clr Drug Dosing 102.7 Est GFR ( Amer) 125.7 Est GFR (Non-Af Amer) 108.5 BUN/Creatinine Ratio 14.0 Glucose 85 Fasting Glucose Calcium 8.9 Total Bilirubin 0.6 AST 24 ALT 22 Alkaline Phosphatase 79 Total Protein 7.1 Albumin 4.2 Globulin 2.9 Albumin/Globulin Ratio 1.5 Triglycerides Cholesterol LDL Cholesterol, Calc VLDL Cholesterol, Calc HDL Cholesterol Cholesterol/HDL Ratio TSH 1.140 Urine Color Urine Appearance Urine pH Ur Specific [place] Urine Protein Urine Glucose (UA) Urine Ketones Urine Blood Urine Nitrite Urine Bilirubin Urine Urobilinogen Ur Leukocyte Esterase Urine WBC (Auto) Urine RBC (Auto) U Hyaline Cast (Auto) U Epithel Cells (Auto) Urine Bacteria (Auto) Urine Test Salicylates Urine Opiates Screen Ur Methadone, Qual Acetaminophen Urine Barbiturates Ur Phencyclidine (PCP) U Amphetamin/Meth Scrn MDMA (Ecstasy) Screen U Benzodiazepines Scrn Ur Cocaine Metabolite U Marijuana (THC) Screen U Marijuana THC Carboxy 97 A Ethyl Alcohol mg/dL 07/28/19 07/28/19 07/31/19 13:40 13:40 07:49 WBC RBC Hgb Hct MCV MCH MCHC RDW Std Deviation RDW Coeff of Barry Plt Count MPV Immature Gran % (Auto) Neut % (Auto) Lymph % (Auto) Charles % (Auto) Eos % (Auto) Baso % (Auto) Immature Gran # (Auto) Neut # (Auto) Lymph # (Auto) Charles # (Auto) Eos # (Auto) Baso # (Auto) Sodium Potassium Chloride Carbon Dioxide Anion Gap BUN Creatinine Est Cr Clr Drug Dosing Est GFR ( Amer) Est GFR (Non-Af Amer) BUN/Creatinine Ratio Glucose Fasting Glucose 77 Calcium Total Bilirubin AST ALT Alkaline Phosphatase Total Protein Albumin Globulin Albumin/Globulin Ratio Triglycerides 78 Cholesterol 101 LDL Cholesterol, Calc 51 VLDL Cholesterol, Calc 16 HDL Cholesterol 34 Cholesterol/HDL Ratio 3 TSH Urine Color Urine Appearance Urine pH Ur Specific [place] Urine Protein Urine Glucose (UA) Urine Ketones Urine Blood Urine Nitrite Urine Bilirubin Urine Urobilinogen Ur Leukocyte Esterase Urine WBC (Auto) Urine RBC (Auto) U Hyaline Cast (Auto) U Epithel Cells (Auto) Urine Bacteria (Auto) Urine Test Salicylates < 1.7 L Urine Opiates Screen Ur Methadone, Qual Acetaminophen < 2 L Urine Barbiturates Ur Phencyclidine (PCP) U Amphetamin/Meth Scrn MDMA (Ecstasy) Screen U Benzodiazepines Scrn Ur Cocaine Metabolite U Marijuana (THC) Screen U Marijuana THC Carboxy Ethyl Alcohol mg/dL < 3.0 Hospital Course (1) Bipolar disorder: 07/29/19 -The patient indicates that there has been some question concerning her correct diagnosis in the past. However, she does appear to meet criteria for bipolar disorder type II. -We discussed a number of options for mood stabilization, and it may be that the only mood stabilizer that she is ever taken is lithium. She was not able to tolerate lithium, and she suggests that there may have been others that she cannot of. She believes, however, that she has not taken aripiprazole for depression or for mood stabilization. -Begin aripiprazole 2.5 mg at bedtime and titrate as indicated and tolerated. Material risks and anticipated benefits of aripiprazole were reviewed with the patient and she indicated understanding. -Begin Lexapro 5 mg as a test dose and continue daily with titration as tolerated and indicated. Material risks and anticipated benefits of Lexapro were reviewed with the patient and she indicated understanding. -Depending upon the patient's response to the above, trials of lamotrigine, or valproic acid may be indicated. -An impediment to treatment may be the patient's fear of gaining weight. The patient was counseled regarding the risk of weight gain and psychiatric medications. She had not been able to tolerate bupropion and she also had not been able to tolerate venlafaxine. She is aware that these medications do not in and of themselves cause weight gain, but may stimulate the appetite and c ertain cravings that need to be managed to avoid excessive weight gain. -Encourage participation in individual, group, and activity therapies to learn improved individual coping strategies. 07/30 - Continue escitalopram and aripiprazole. Fasting labs ordered for tomorrow for baseline on an atypical. 07/31 - Reviewed FG and FLP with patient; all values WNLs. - Increase aripiprazole to 5mg qam and continue escitalopram 5mg daily. -Encourage group attendance. 08/01 - Pt reports feeling "in an upswing" over the past 1+ days. While she does not appear to be activated, she admits to "my heart's racing and I'm thinking of all the things I want to buy." - Reviewed education regarding her medication regimen - explanation provided regarding use of antidepressant medications in combination with mood stabilization agents - Pt is agreeable to titration of aripiprazole to 10mg tomorrow morning. Will continue escitalopram at 5mg for now, with ongoing monitoring - not showing signs of acute derek/activation but could discontinue antidepressant temporarily if these develop - Will titrate hydroxyzine to 100mg qHS prn for sleep, as patient felt trazodone was overly sedating 08/02 - Continue as above - Continue to provide education on medication regimen and benefits of medication compliance for long-term treatment success (2) Suicidal ideation: 07/29/19 -The patient reports that she has frequent suicidal thoughts, but at the present does not have suicidal plan, nor does she have suicidal intent. -She contracts for safety in the hospital. There is a past history of a suicide attempt approximately 12 years ago. She also engaged in intentional self-injurious behaviors for a number of years, but has not engaged in this behavior for approximately 10 years. -The patient agrees to notify staff if suicidal plan or intent develops. -Inpatient psychiatric hospitalization is the least intensive level of care consistent with the patient's needs due to the patient's past history of experiencing worsening depression and suicidality when psychiatric medications are introduced, and the need to introduce psychiatric medications in a controlled, safe setting. 07/30 -Ongoing SI, but feels safe in the hospital. 08/01 - Ongoing, at times more passive in nature - but remains unable to contract for safety outside of the hospital setting 08/02 - Denies SI thus far today (3) Anxiety: 07/29/19 -Encourage active participation in scheduled group and activity therapies in order to learn improved individual coping strategies. -Emphasize reliance on known techniques such as crafting origami when anxious or distressed. 08/02 - Reports ongoing anxiety related to her job absences and not hearing back about FMLA - Pt admits to concern that a negative response from her employer may lead to a "melt down" [facility] Psychiatrist Name of Psychiatrist: MANJEET Lowe Psychiatrist's Date of Appointment with Psychiatrist: 08/09/19 Time of Appointment with Psychiatrist: 4:00 p.m. Psychiatric Appointment Comment: [address] [facility], [place], [place] Therapist Name of Therapist: Riley Gutiérrez Patricia Barron Therapist's Date of Therapist Appointment: 08/08/19 Time of Therapist Appointment: 11:00 a.m. (please arrive 15 minutes early) Therapy Appointment Comment: [address] [place] Metals Analyst Name of Metals Analyst: None Post Discharge Appointments Primary Care Physician Name Of Family Doctor: [facility] - Dr Hinojosa Primary Care Date of Appointment with PCP: 08/11/19 Provider Appointment Comment: [address], [place] [address], [place] Smoking Cessation Counseling Tobacco Cessation Medication Prescribed at Discharge: Not Applicable/Non-Smoker (had nicotine patch prescribed as home medications, nicotine cessation in process on outpatient basis) Other #1: Name of Aftercare Appointment: [facility] Phone Number of Aftercare Appointment: President Brock Roblero Time of Aftercare Appointment: [email or web address]; [phone] Aftercare Appointment Comment: Additional resource if needed #2: Name of Aftercare Appointment: [facility] Phone Number of Aftercare Appointment: Presmagi Burks Time of Aftercare Appointment: [email or web address]; [phone] Aftercare Appointment Comment: Additional resource if needed Contact Information Discharge Discharge Address: [address] [place], [place] [address] [address] Discharge Plan Discharge Items Patient Disposition: Home - Self-Care Reason For Visit: MDD Discharge Diagnosis: Bipolar disorder; anxiety Condition on Discharge: Good Activity: Resume your previous activity Non-emergency contact: Primary Care Provider, Psychiatrist and Therapist Call non-emergency contact if: you have any medication questions and your symptoms worsen Follow-up/Referrals: Abelardo Hinojosa [Primary Care Provider] - Diet: Regular Addtl Attending Provider Instructions: SPECIAL CARE INSTRUCTIONS: 1. Follow through with your scheduled aftercare appointments. If unable to keep an appointment, please call to reschedule. 2. Take your medication only as prescribed. Medication should not be changed or stopped without the approval of your doctor. In the event of worsening symptoms or concerns about side effects, contact your doctor immediately. 3. Utilize new healthy coping skills, anger management skills, and stress management skills learned during your hospitalization. Journal feelings and process them with a support person. Identify stressors or situations that may result in relapse, deterioration or inappropriate behaviors and develop a plan to deal with those issues. 4. If your coping skills are ineffective and you are in crisis, contact your outpatient providers for direction. If unable to reach your providers, please call the CAN HELP LINE AT or go to the closest Emergency Room. 5. Avoid alcohol and un-prescribed drugs. 6. You have been provided with the Mental Health Advance Directives Pamphlet for your review. AFTERCARE APPOINTMENTS: * Please call your insurance company prior to your scheduled appointment to confirm your aftercare providers are covered. Take your insurance information to your appointments. WHO TO CALL AND WHEN: Medical Emergencies: For questions or emergencies related to your hospital stay, please contact the Inpatient Behavioral Health Unit at [phone]. A home health clinician is on-call 08/06 for the Behavioral Health Unit for emergencies At any time you feel your situation is an emergency, you may also call 911 immediately. Your Doctors Instructions noted above were prepared by provider Vivian Nam PA-C. Pending Studies at Discharge: No Stand-Alone Forms: [facility] Medications and DC Order Prescriptions: New aripiprazole [Abilify] 10 mg Tablet 10 mg PO QAM 30 Days Qty: 30 RF: 0 escitalopram oxalate 5 mg tablet 5 mg PO QAM 30 Days Qty: 30 RF: 0 hydroxyzine HCl 25 mg Tablet 25 mg PO Q4H PRN (Reason: anxiety/insomnia) 30 Days Qty: 30 RF: 0 Continued levonorgestrel 20 mcg/24 hours (5 yrs) 52 mg intrauterine device 20 mcg IU CONTINOUS RF: 0 ibuprofen 200 mg Tablet 400 mg PO Q6H PRN (Reason: Pain) RF: 0 nicotine [Nicoderm CQ] 7 mg/24 hr Patch 24 Hour 1 patch transdermal DAILY RF: 0 Discontinued clonazepam 0.5 mg tablet 0.5 mg PO BID PRN (Reason: Anxiety) RF: 0 Discharge Orders: Discharge Order (Routine); Ordered 08/03/19 Ordered By: Vivian Nam Admission Data Admit Date/Time: 07/28/19 15:26 Attending Provider: Yasemin Brantley Admit Provider: Terrell Lan I Primary Care Provider: Abelardo Hinojosa Other Interventions: Discharge Summary Assessment (RN) Last Done: 08/03/19 10:13 PSY Interdisciplinary Discharge Planning Last Done: 08/03/19 10:30
[2019-08-03] MEDS ORDERED: DESTROY THIS MEDICATION ONE (10:15)
== END 2019-08-03 11:17 | disposition home or self-care (01) | DRG 885 ==
LOC: ED 13:24 → 3S 15:26